=== PATIENT | male | born 1965 | race Caucasian/White ===

== ENCOUNTER 2024-01-30 15:38 | Outpatient (REF) | payer OTHER, SELFPAY ==
--- NOTE | ~2024-01-30 | XR_ITS ---
EXAMINATION: XR SOFT TISSUE NECK CLINICAL INDICATION: Right neck pain. COMPARISON: None available. TECHNIQUE: 2 views of the soft tissue neck were obtained. FINDINGS: The soft tissues of the larynx, pharynx and upper trachea appear unremarkable. No soft tissue swelling or opaque foreign body is demonstrated. Moderate disc degenerative change at C4-C6. Mild reversal of the normal cervical lordosis centered at C4-C5 XR/XR soft tissue neck IMPRESSION: Degenerative change. Electronically signed by: Bill Miller MD 02/01/2024 05:53 PM EDT
== END 2024-01-30 15:39 | disposition home or self-care (01) ==
LOC: HO.XRAY 15:38
PROVIDERS: PCP Internal Medicine Medical Oncology; Visit Provider Internal Medicine Medical Oncology
DX: M54.2 Cervicalgia (principal)
CPT/HCPCS: 70360

== ENCOUNTER 2024-02-13 15:44 | Outpatient (REF) | payer OTHER, SELFPAY ==
--- NOTE | ~2024-02-13 | US_ITS ---
EXAMINATION: US SOFT TISSUE HEAD/NECK CLINICAL INFORMATION: Palpable nodule right neck just below the ear. COMPARISON: X-ray soft tissue neck 01/30/2024. TECHNIQUE: Linear transducer grayscale and color Doppler examination of the right neck, inferior to ear. FINDINGS: Correlating with the palpable nodule, there is a benign, normal-appearing lymph node with normal cortex, normal fatty hilum, normal morphology measuring 0.5 x 0.3 x 0.3 cm. This is benign. There are no suspicious findings, abnormal fluid collections, abnormal lymph nodes, or masses. US/US soft tiss head and/or neck IMPRESSION: Palpable abnormality inferior to the right ear corresponds with a normal appearing right cervical lymph node. Electronically signed by: Steven Zheng MD 03/25/2024 04:09 PM [facility]
== END 2024-02-13 15:45 | disposition home or self-care (01) ==
LOC: HO.US 15:44
PROVIDERS: PCP Internal Medicine Medical Oncology; Visit Provider Internal Medicine Medical Oncology
DX: R22.1 Localized swelling, mass and lump, neck (principal)
CPT/HCPCS: 76536

== ENCOUNTER → 2024-02-13 15:48 | Outpatient (BNV) | payer OTHER, SELFPAY | PROVIDERS: PCP Internal Medicine Medical Oncology; Visit Provider Radiology Diagnostic Radiology | DX: R22.1 Localized swelling, mass and lump, neck (principal) | CPT/HCPCS: 76536 ==

== ENCOUNTER 2024-07-14 08:38 | Outpatient (REF) | payer OTHER, SELFPAY ==
--- NOTE | ~2024-07-14 | FL_ITS ---
EXAMINATION: XR FLUOROSCOPY UPPER GI WITH AIR CLINICAL INFORMATION: Dysphagia. COMPARISON: None TECHNIQUE: Fluoroscopic air contrast upper GI examination was performed utilizing standard techniques with thin and thick barium and effervescent granules. Numerous spot images were obtained. FINDINGS: Lateral cine images of the oropharynx and hypopharynx demonstrate normal swallow mechanism with normal epiglottic inversion and soft palate elevation. No tracheal penetration, glottic or subglottic aspiration identified. No nasopharyngeal reflux present. Hypopharyngeal structures appear normal without evidence of mass or diverticulum. There was no significant cricopharyngeal achalasia. Dual and single contrast images of the esophagus demonstrate normal caliber, contour, and mucosal pattern. No evidence of stricture, mass, or ulcerations identified. Esophageal peristalsis is mildly disorganized. No evidence of hiatus hernia identified. Significant gastroesophageal reflux is seen up to the thoracic inlet. Dual contrast and single contrast images of the stomach demonstrated a normal contour. The gastric rugal folds have a thickened appearance, suggestive of gastritis. No masses or ulcerations are seen. Contrast freely passed into the gastric antrum and duodenal bulb without delay. Single and air-contrast images of the duodenal bulb demonstrate no abnormality. The duodenal sweep has a normal appearance, course, and mucosal fold appearance. The imaged proximal jejunum has a normal fold pattern and caliber. FLUOROSCOPY TIME: 3 minutes 3 seconds Number of Spot Images: 8 Number of Cine: 13 DOSE AREA PRODUCT: 1859 uGy-m2 (microgray-meter squared) FL/FL barium swallow IMPRESSION: 1. Mild esophageal dysmotility. 2. Significant gastroesophageal reflux. 3. Thickened appearance of the gastric rugal folds, suggestive of gastritis. This procedure was performed by Emery Ernandez PA-C, and supervised by Dr. Zheng Electronically signed by: Steven Zheng MD 07/14/2024 04:16 PM [facility] [place]
--- OUTSIDE RECORDS SUMMARY | 2024-07-14 09:13 | XMS_ITS | Clinical Summary ---
Author Organization [facility] [address] [facility] [address] Address [address] [place] [address] Phone Care Team Providers Care Roulette Dealer Name Role Phone Davin Castellanos MD Primary Care Provider Allergies No known active allergies Encounters Date Type Department Care Team Description 05/03/2024 Telephone Gastroenterology - [address] [phone] Wellington Mg MD from Last 3 Months Social History Tobacco Use Types Packs/Day Years Used Date Smoking Tobacco: Never Assessed Sex and Gender Information Value Date Recorded Sex Assigned at Not on file Legal Sex Male 6:03 PM EST Gender Identity Not on file Sexual Orientation Not on file Plan of Treatment Upcoming Encounters Date Type Department Care Team (Late st Contact Info) Description 08/04/2024 8:40 AM EDT Office Visit Gastroenterology - [address] [phone] Wellington Mg MD [address] [id number] Health Maintenance Due Date Last Done Comments DTaP,Tdap,and Td Vaccines (1 - Tdap) 1982 Pneumococcal Vaccine: 50+ Ye ars (1 of 1 - PCV) 2013 Zoster Vaccines (1 of 2) 2013 COVID-19 Vaccine ( - 2023-2 5 season) 2024 Influenza Vaccine (#1) 2024 Cholesterol Screening (Lipid Panel) 04/01/2024 Colorectal Cancer Screening: Colonoscopy 04/01/2024 Depression Screening 04/01/2024 HIV Screening 04/01/2024 Hepatitis C Screening 04/01/2024 Medicare Annual Wellness Visit 04/01/2024 Social Influencers of Health Screening 04/01/2024 RSV Immunization Patients 60 + Years Old (1 - 1-dose 75+ series) 2038 HIB Vaccines Aged Out No longer eligi ble based on patient's age to complete this topic HPV Vaccines Aged Out No longer eligi ble based on patient's age to complete this topic Hepatitis A Vaccines Aged Out No long er eligible based on patient's age to complete this topic Hepatitis B Vaccines Aged Out No long er eligible based on patient's age to complete this topic IPV Vaccines Aged Out No longer eligi ble based on patient's age to complete this topic MMR Vaccines Aged Out No longer eligi ble based on patient's age to complete this topic Meningococcal ACWY Vaccine Aged Out N o longer eligible based on patient's age to complete this topic Meningococcal B Vacine Aged Out No lo nger eligible based on patient's age to complete this topic Pneumococcal Vaccine: Pediat rics (0 to 5 Years) and At-Risk Patients (6 to 64 Years) Aged Out No longer eligible b ased on patient's age to complete this topic RSV Immunization Patients Un darlin 20 months Aged Out No longer eligible b ased on patient's age to complete this topic Varicella Vaccines Aged Out No longer eligible based on patient's age to complete this topic Insurance [employer] [address] [place] [address] Care Teams Roulette Dealer Relationship Specialty [place] [address] [place] [address] [address] [place] [address] PCP - General Oncology 04/01/24
--- OUTSIDE RECORDS SUMMARY | 2024-07-14 09:13 | XMS_ITS ---
Author Organization Davin Castellanos III, MD Address [address] [place] [address] [place] [address] Care Team Providers Care Credit Professional Name Role Phone Davin Castellanos Primary Care Provider [phone] REASON FOR VISIT Rx Request Medications Medication SIG (Take, Route, Fr equency, Duration) Notes Start Date End Date Status Ondansetron HCl 4 MG 1 tablet Orally rodger ry 4 hours for nausea for 10 days Active Social History Sex Assigned At : Social History Observation Description Sex Assigned At Male Encounters Encounter Location Date Provider Diagnosis Daivn Castellanos III, MD [address] [place] [address] [place] [address] 04/26/2024 Davin Castellanos Neck pain on right side M54.2 Assessments Encounter Date Diagnosis (ICD Code) Assessment Notes Treatment Notes Treatment Clinical Notes 04/26/2024 Neck pain on right side (ICD-10 - M54.2) He is very concerned that he feels a mass in the right neck. An ultrasound has been ordered to further characterize the area.The ultrasound showed no significant abnormality. An MRI of the neck has been ordered. He has been referred to rehabilitation medicine for injections to relieve the pain. Plan Of Treatment Medication Medication Name Sig Start Date Stop Date Notes Ondansetron HCl 4 MG 1 tablet Orally rodger ry 4 hours for nausea for 10 days Next Appt Details Provider Name:Davin Castellanos, 07/15/2024 11:30:00 AM, [address] [place] [address] [address], [place], [phone], Provider Name:Davin Castellanos, 04/05/2025 04:00:00 PM, [address] [place] [address] [address], [place], [phone], Progress Notes * ADELSO FrdedyjoseDOB: [birth year] (58 yo M)Acc No.[id number]:04/26/2024 Patient:?Sekou DARDEN :1965???Age:58 Y???Sex:Male Address:[address] [place] [address], [phone] * Refills? Refill Ondansetron HCl Tablet, 4 MG, Orally, 60, 1 tablet, every 4 hours for nausea, 10 days, Refills=5 * true * Date:? Generated for Letty gaviria/Javon/eTransmitting on:?07/14/2024 09:12 AM EST
--- OUTSIDE RECORDS SUMMARY | 2024-07-14 09:13 | XMS_ITS ---
Author Organization Davin Castellanos III, MD Address [address] [place] [address] Care Team Providers Care Sales Executive Insurance Name Role Phone Davin Castellanos Primary Care Provider [phone] REASON FOR VISIT follow up Social History Sex Assigned At : Social History Observation Description Sex Assigned At Male Encounters Encounter Location Date Provider Diagnosis Davin Castellanos III, MD [address] [place] [address] [place] [address] 05/05/2024 Davin Castellanos Plan Of Treatment Next Appt Details Provider Name:Davin Castellanos, 07/15/2024 11:30:00 AM, [address] [place] [address] [place], [phone], Provider Name:Davin Castellanos, 04/05/2025 04:00:00 PM, [address] [place] [address] [place], [phone], Progress Notes * Sekou DARDENDOB: [birth year] (59 yo M)Acc No.[id number]:05/05/2024 Progress Notes Patient:?Sekou DARDEN Provider:?Davin Castellanos MD :1965???Age:58 Y???Sex:Male Rohan e:05/05/2024 Address:[facility] [id number] Subjective: * Chief Complaints: * ???1. Follow up. * Medical History:? Objective: * Vitals:? Assessment: Plan: * Treatment: * Images: * The named appointment provid er may or may not be the originator of this progress note, and it is not deemed complete until electronically signed by the appointment provider. Sign off status: Pending * Provider:?Davin Castellanos MD Date:?04/18 Generated for Letty gaviria/Javon/eTransmitting on:?07/14/2024 09:13 AM EST
--- OUTSIDE RECORDS SUMMARY | 2024-07-14 09:13 | XMS_ITS ---
Author Organization Davin Castellanos III, MD Address [address] [place] [address] Care Team Providers Care [employer] Software Development Engineer Name Role Phone Davin Castellanos Primary Care Provider [phone] Allergies Allergen (clinical drug ingredient) Drug/Non Drug Allergy documented on EMR Reaction Allergy Type Onset Date Status Sulfamethoxazole nausea Drug Allergy Active REASON FOR VISIT Chronic low back pain, Left cervical radiculopathy, Chronic abdominal discomfort, Benign prostatic hypertrophy, Weight loss, Lumps posterior right neck Medications Medication SIG (Take, Route, Fr equency, Duration) Notes Start Date End Date Status Ondansetron HCl 4 MG 1 tablet Orally rodger ry 4 hours for nausea Active Omeprazole 20 MG as directed Orally Once a day Active Ibuprofen 800 MG 1 tablet with food o r milk as needed Orally every 8 hrs Active Social History Tobacco Use: Social History Observation Description Date Details (start date - stop date) Former Smoker NA - NA Sex Assigned At : Social History Observation Description Sex Assigned At Male Tobacco Use/Smoking Question Answer Notes Patient is a former smoker How long has it been since you last smoked? > 10 years Additional Findings: Tobacco Non-User Ex-cigaret te smoker Problems Problem Type SNOMED Code ICD Code Onset Dates Problem Status W/U Status Risk Notes Problem Lump on neck (024889509) Lump in neck (R22.1) Active confirmed He is concerned about this lump in the upper right neck. On examination today as in the past. It appears to be vertebral process. No adenopathy or other masses noted. I have attempted to reassure him today. Problem 17219249 Abdominal discomfort (R10.9) Active confirmed His amylase is normal, but his lipase is slightly elevated. An ultrasound of his abdomen will be ordered to assess stability of retract and pancreas. He is able to consume food and fluids. He has had no nausea or vomiting. He seems medically stable. Problem 29703265 Cervical radiculopathy (M54.12) Active confirmed He has pain when he rotates his neck and he has failed to improve with physical therapy. Therefore an MRI will be ordered to look for a surgical solution. The pain is 7/10 and radiates into his shoulder and upper left arm Vital Signs Temperature 98.6 degrees Fahrenheit 07/08/19 25 Blood pressure systolic 131 mm Hg 07/08/19 25 Blood pressure diastolic 84 mm Hg 025 Heart Rate 69 /min 07/08/2024 Height 72 in 07/08/2024 Weight 188 lbs 07/08/2024 BMI 25.49 kg/m2 07/08/2024 Encounters Encounter Location Date Provider Diagnosis Davin Castellanos III, MD [address] [place] [address] [place] [address] 07/08/2024 Davin Castellanos Abdominal discomfort R10.9 ; Benign prostatic hyperplasia, unspecified whether lower urinary tract symptoms present N40.0 ; Lump in neck R22.1 ; Duodenitis K29.80 ; Lumbar spondylosis M47.816 ; Old tear of meniscus of right knee, unspecified meniscus, unspecified tear type M23.206 ; Former smoker Z87.891 ; Overweight E66.3 and Cervical radiculopathy M54.12 Assessments Encounter Date Diagnosis (ICD Code) Assessment Notes Treat ment Notes Treatment Clinical Notes 07/08/2024 Abdominal discomfort (ICD-10 - R10.9) His amylase is normal, but his lipase is slightly elevated. An ultrasound of his abdomen will be ordered to assess stability of retract and pancreas. He is able to consume food and fluids. He has had no nausea or vomiting. He seems medically stable. 07/08/2024 Benign prostatic hyperplasia, unspecified whether lower urinary tract symptoms present (ICD-10 - N40.0) He rises from sleep 2 or 3 times a night to urinate. He rises 3 times some nights. We discussed lifestyle modification is aware reducing nocturia. 07/08/2024 Lump in neck (ICD-10 - R22.1) He is concerned about this lump in the upper right neck. On examination today as in the past. It appears to be vertebral process. No adenopathy or other masses noted. I have attempted to reassure him today. 07/08/2024 Duodenitis (ICD-10 - K29.80) This was found in 2016 on upper endoscopy. He continues on acid suppression and uses ondansetron for nausea. He is under the care of a veneer marker. The abdominal discomfort and complaint has been evaluated thoroughly in the past and the only findings for inflammation of the duodenum. He will continue on current therapy and database will be reviewed. 07/08/2024 Lumbar spondylosis (ICD-10 - M47.816) He has occasional back pain which is well controlled with [id number] medication. He is avoiding heavy lifting and exertion. 07/08/2024 Old tear of meniscus of right knee, unspecified meniscus, unspecified tear type (ICD-10 - M23.206) This has been repaired in the right knee is no longer painful. 07/08/2024 Former smoker (ICD-10 - Z87.891) He is well motivated not to smoke. We formed a plan to prevent relapse and times of stress and illness. 07/08/2024 Overweight (ICD-10 - E66.3) He remains slightly overweight. We discussed several weight loss strategies today. 07/08/2024 Cervical radiculopathy (ICD-10 - M54.12) He has pain when he rotates his neck and he has failed to improve with physical therapy. Therefore an MRI will be ordered to look for a surgical solution. The pain is 7/10 and radiates into his shoulder and upper left arm Plan Of Treatment Medication Medication Name Sig Start Date Stop Date Notes Ondansetron HCl 4 MG 1 tablet Orally rodger ry 4 hours for nausea Omeprazole 20 MG as directed Orally Once a day Ibuprofen 800 MG 1 tablet with food o r milk as needed Orally every 8 hrs Pending Test Test Name Order Date PROFILE, FASTING (COMPREHENSIVE METABOLI C) 07/08/2024 PSA, TOTAL 07/08/2024 MRI CERVICAL SPINE NO CONTRAST 5 CBC WITH AUTO DIFF 07/08/2024 Lipid Panel 07/08/2024 Amylase 07/08/2024 Lipase 07/08/2024 Next Appt Details Follow Up: 3 Weeks, Reason: ov Provider Name:Davin Castellanos, 07/15/2024 11:30:00 AM, [address] [place] [address] [address], [place], [address], Provider Name:Davin Clevelandne, 04/05/2025 04:00:00 PM, [address] [place] [address] [address], [place], [address], Progress Notes * Sekou DARDENDOB: [birth year] (59 yo M)Acc No.[id number]:07/08/2024 Progress Notes Patient:?Sekou DARDEN Provider:?Davin Castellanos MD :1965???Age:59 Y???Sex:Male Rohan e:07/08/2024 Address:[address] [place], [place] [id number] Subjective: * Chief Complaints: * ???Chronic low back painLeft cervical radiculopathyChronic abdominal discomfortBenign prostatic hypertrophyWeight lossLumps posterior right neck * HPI: ???:? The patient, a 59-year-old male, presented with multiple complaints. He reported intermittent back pain and described a sensation of being kicked in the groin. He also reported bowel irregularities, with infrequent bowel movements that were incomplete. The patient also described a low urinary flow, which he felt was only relieved when he sat on the toilet and turned his body a certain way. He also reported pain in his pancreas. The patient mentioned having undergone multiple tests including MRIs, colonoscopies, and endoscopies. He also reported a lump in his neck and pain radiating to his shoulder. He also reported difficulty hearing due to what he believed was earwax buildup. * ROS:?General/Constitutional:?Admits?pain,?only normal aches and pains.?Chills?denies.?Fatigue?admits.?Fever?denies.?ENT:?Decreased hearing?denies.?Respiratory:?Cough?denies.?Cardiovascular:?Chest pain with exertion?denies.?Dyspnea on exertion?denies.?Shortness of breath?denies.?Gastrointestinal:?Constipation?occasional.?Decreased appetite?denies.?Diarrhea?denies.?Heartburn?occasional.?Nausea?intermittent.?Rec enriqueta bleeding?denies.?Vomiting?denies.?Hematology:?bruising?denies.?petechiae?denies.?Swollen glands?none have been noted.?Genitourinary:?Frequent urination?once a night.?Musculoskeletal:?Muscle aches?denies.?Painful joints?denies.?Sciatica?denies.?Weakness?denies.?Skin:?Itching?denies.?Rash?denies.?Skin lesion(s)?denies.?Neurologic:?Difficulty speaking?denies.?Dizziness?denies.?Headache?denies.?Low back pain?denies.?Psychiatric:?Depressed mood?which is mild.? * Medical History:? * Surgical History:?Colonoscop y Upper Gastointestinal endoscopy Right knee arthroscopic meniscectomy 2008bilateral cataract surgery right knee arthroscopic surgery 2009 * Hospitalization/Major Diagno stic Procedure:?Denies Past Hospitalization * Family History:?Father: bailee medeiros 74 yrs, Hepatitis C, alcoholism, diagnosed with HTN.?Mother: alive 74 yrs, Cardiac ablation procedure, hip repair.?1 brother(s) , 6 sister(s) - healthy. 2 son(s) - healthy. .? His father has a history of opiate addiction. His mother is alive and well with a history of ablation procedures in her heart. One brother of drug overdose. 6 sisters are alive and well. He has 1 grandchild. There is no family history of breast cancer colon cancer ovarian cancer prostate cancer or pancreatic cancer. * Social History:?Tobacco Use:?Tobacco Use/Smoking?Patient is a?former smoker ?How long has it been since you last smoked??> 10 years ?Additional Findings: Tobacco Non-User?Ex-cigarette smoker ???He no longer smokes tobacco. 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 He is from [place]. He has 2 sons in their 20s Mitchell and Tom. * Medications:?TakingOmeprazol e 20 MG Capsule Delayed Release as directed Orally Once a day Ibuprofen 800 MG Tablet 1 tablet with food or milk as needed Orally every 8 hrs Ondansetron HCl 4 MG Tablet 1 tablet Orally every 4 hours for nausea Taking Omeprazole 20 MG Capsule Delayed Release as directed Orally Once a day Taking Ibuprofen 800 MG Tablet 1 tablet with food or milk as needed Orally every 8 hrs Taking Ondansetron HCl 4 MG Tablet 1 tablet Orally every 4 hours for nausea DiscontinuedMetoclopramide HCl 10 MG Tablet 1 tablet before meals Orally four times a day predniSONE 20 MG Tablet 1 tablet Orally Once a day Mupirocin 2 % Ointment 1 application Externally Twice a day Medication List reviewed and reconciled with the patientDiscontinued Metoclopramide HCl 10 MG Tablet 1 tablet before meals Orally four times a day Discontinued predniSONE 20 MG Tablet 1 tablet Orally Once a day Discontinued Mupirocin 2 % Ointment 1 application Externally Twice a day Medication List reviewed and reconciled with the patient * Allergies:?Sulfamethoxazole: nausea - Side Effectsno[Allergies Verified] Objective: * Vitals:?Ht: 72 , Wt: 188, BM I:25.49, BP: 131/84, HR: 69, Temp: 98.6, Ht-cm: 182.88, Wt-k.28. * Examination: ???General Examination: ?GENERAL APPEARANCE:?pleasant, well nourished, well developed, in no acute distress, calm and relaxed, overweight, man.?HEAD:?atraumatic, normocephalic.?EYES:?eomi, perrla, anicteric, conjugate.?EARS:?normal.?NOSE:?septum intact.?ORAL CAVITY:?normal, unremarkable.?NECK/THYROID:?no jugular venous distention, no carotid bruit, thyroid normal.?LYMPH NODES:?no enlarged lymph nodes,spleen normal.?SKIN:?no suspicious lesions, anicteric.?HEART:?no clicks, gallops, murmurs, or rubs, regular rhythm, S1, S2 normal, no s3, or vascular bruits.?LUNGS:?clear to auscultation .?BREASTS:??no masses palpable bilaterally.?ABDOMEN:?bowel sounds normal, no ascites, no organomegaly, no mass, overweight, soft, nontender, nondistended.?RECTAL EXAM:?not examined.?MUSCULOSKELETAL:?extremities unremarkable, no clubbing, cyanosis or edema,? pain to left shoulder with range of motion of the neck.?PERIPHERAL PULSES:?normal.?NEUROLOGIC:?alert and oriented, cranial nerves 2-12 grossly intact, deep tendon reflexes 2+ symmetrical, motor strength normal upper and lower extremities, sensory exam intact.?PSYCH:?alert, oriented, speech clear, cooperative with exam, anxious appearing, affect restricted.? Assessment: * Assessment: 1.?Benign prostatic hyperpla antionette, unspecified whether lower urinary tract symptoms present - N40.0 (Primary)???Notes :He rises from sleep 2 or 3 times a night to urinate. He rises 3 times some nights. We discussed lifestyle modification is aware reducing nocturia.???2.?Abdominal discomfort - R10.9???Notes :His amylase is normal, but his lipase is slightly elevated. An ultrasound of his abdomen will be ordered to assess stability of retract and pancreas. He is able to consume food and fluids. He has had no nausea or vomiting. He seems medically stable.???3.?Lump in neck - R22.1???Notes :He is concerned about this lump in the upper right neck.? On examination today as in the past.? It appears to be vertebral process.? No adenopathy or other masses noted.? I have attempted to reassure him today.???4.?Duodenitis - K29.80???Notes :This was found in 2016 on upper endoscopy. He continues on acid suppression and uses ondansetron for nausea. He is under the care of a veneer marker. The abdominal discomfort and complaint has been evaluated thoroughly in the past and the only findings for inflammation of the duodenum. He will continue on current therapy and database will be reviewed.???5.?Lumbar spondylosis - M47.816???Notes :He has occasional back pain which is well controlled with [id number] medication. He is avoiding heavy lifting and exertion.???6.?Old tear of meniscus of right knee, unspecified meniscus, unspecified tear type - M23.206???Notes :This has been repaired in the right knee is no longer painful.???7.?Former smoker - Z87.891???Notes :He is well motivated not to smoke. We formed a plan to prevent relapse and times of stress and illness.???8.?Overweight - E66.3???Notes :He remains slightly overweight. We discussed several weight loss strategies today.???9.?Cervical radiculopathy - M54.12???Notes :He has pain when he rotates his neck and he has failed to improve with physical therapy.? Therefore an MRI will be ordered to look for a surgical solution.? The pain is 7/10 and radiates into his shoulder and upper left arm??? Plan: * Treatment: 2.?Abdominal discomfort? Continue Ibuprofen Tablet, 800 MG, 1 tablet with food or milk as needed, Orally, every 8 hrs.?LAB: PROFILE, FASTING (COMPREHENSIVE METABOLIC) ?LAB: PSA, TOTAL ?LAB: CBC WITH AUTO DIFF ?LAB: Lipid Panel ?LAB: Amylase ?LAB: Lipase 3.?Overweight?LAB: PROFILE, FASTING (COMPREHENSIVE METABOLIC) ?LAB: PSA, TOTAL ?LAB: CBC WITH AUTO DIFF ?LAB: Lipid Panel ?LAB: Amylase ?LAB: Lipase 4.?Others? Continue Omeprazole Capsule Delayed Release, 20 MG, as directed, Orally, Once a day;?Continue Ondansetron HCl Tablet, 4 MG, 1 tablet, Orally, every 4 hours for nausea.?? * Imaging:? * ?Imaging: MRI CERVICAL S PINE NO CONTRAST * Procedure Codes:? * Preventive Medicine:? ??Counseling:?Care goal follow-up plan:?Counseling for abnormal BMI given?Yes ?Above Normal BMI Follow-up?Dietary management education, guidance, and counseling, Dietary needs education * Follow Up:?3 Weeks (Reason: ov) * Images: * Sign off status: Completed true * Provider:?Davin Castellanos MD Date:?06/20 Generated for Letty gaviria/Javon/eTransmitting on:?07/14/2024 09:13 AM EST History and Physical Notes * Examination Category Sub-Category Detail Notes General Examination GENERAL APPEARANCE: pleasant , well nourished, well developed, in no acute distress, calm and relaxed, overweight, man HEAD: atraumatic, normocep halic EYES: eomi, perrla, anicte jak, conjugate EARS: normal NOSE: septum intact NECK/THYROID: no jugular venous di stention, no carotid bruit, thyroid normal HEART: no clicks, gallops, murmurs, or rubs, regular rhythm, S1, S2 normal, no s3, or vascular bruits LUNGS: clear to auscultatio n ABDOMEN: bowel sounds normal, no ascites, no organomegaly, no mass, overweight, soft, nontender, nondistended NEUROLOGIC: alert and oriented, cranial nerves 2-12 grossly intact, deep tendon reflexes 2+ symmetrical, motor strength normal upper and lower extremities, sensory exam intact SKIN: no suspicious lesion s, anicteric PERIPHERAL PULSES: normal BREASTS: no masses palpable b ilaterally MUSCULOSKELETAL: extremities unremark able, no clubbing, cyanosis or edema, pain to left shoulder with range of motion of the neck LYMPH NODES: no enlarged lymph no marissa,spleen normal RECTAL EXAM: not examined PSYCH: alert, oriented, spe ech clear, cooperative with exam, anxious appearing, affect restricted ORAL CAVITY: normal, unremarkable
--- OUTSIDE RECORDS SUMMARY | 2024-07-14 09:13 | XMS_ITS | Patient Health Record ---
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 Name Role Phone Davin Castellanos Primary Care Provider [phone] Allergies Allergen (clinical drug ingredient) Drug/Non Drug Allergy documented on EMR Reaction Allergy Type Onset Date Status Sulfamethoxazole nausea Drug Allergy Active Results Component Value Reference Range Notes US soft tiss head and/or nec k Reviewed date:05/12/2024 08:44:51 AM Interpretation: Performing Lab: Notes/Report: [address] [address] Ultrasound Report Signed Patient: Sekou Short MR#: [id number] : 1965 Acct:[id number] Age/Sex: 58 / M ADM Date: 02/13/24 Loc: HO.US Attending Dr: Davin Castellanos MD Ordering Physician: Davin Castellanos MD Date of Service: 02/13/24 Procedure(s): US soft tiss head and/or neck Accession Number(s): [id number] cc: Davin Castellanos MD EXAMINATION: US SOFT TISSUE HEAD/NECK CLINICAL INFORMATION: Palpable nodule right neck just below the ear. COMPARISON: X-ray soft tissue neck 01/30/2024. TECHNIQUE: Linear transducer grayscale and color Doppler examination of the right neck, inferior to ear. FINDINGS: Correlating with the palpable nodule, there is a benign, normal-appearing lymph node with normal cortex, normal fatty hilum, normal morphology measuring 0.5 x 0.3 x 0.3 cm. This is benign. There are no suspicious findings, abnormal fluid collections, abnormal lymph nodes, or masses. US/US soft tiss head and/or neck IMPRESSION: Palpable abnormality inferior to the right ear corresponds with a normal appearing right cervical lymph node. Electronically signed by: Steven Zheng MD 03/25/2024 04:09 PM [facility] Dictated By: Steven Zheng MD Signed By: <Electronically signed by Steven Zheng MD in OV> 03/25/24 1609 DD/ 1553 TD/TT: 02/13/24 1554 Public Health Veterinarian: [place] [address] Ultrasound Report Signed Patient: Lacho Short MR#: [id number] : 1965 Acct:[id number] Age/Sex: 58 / M ADM Date: 02/13/24 Loc: HO.US Attending Dr: Davin Castellanos MD Ordering Physician: Davin Castellanos MD Date of Service: 02/13/24 Procedure(s): US sof t tiss head and/or neck Accession Number(s): [id number] cc: Davin Castellanos MD EXAMINATION: US SOFT TISSUE HEAD/NECK CLINICAL INFORMATION: Palpable nodule righ t neck just below the ear. COMPARISON: X-ray soft tissue ne ck 01/30/2024. TECHNIQUE: Linear transducer gr ayscale and color Doppler examination of the right neck, inferior to ear. FINDINGS: Correlating with the palpable nodule, there is a benign, normal-appearing lym ph node with normal cortex, normal fatty hilum, normal morphology me asuring 0.5 x 0.3 x 0.3 cm. This is benign. There are no suspici ous findings, abnormal fluid collections, abnormal lymph nodes, or masses. U S/US soft tiss head and/or neck IMPRESSION: Palpable abnormality inferior to the right ear corresponds with a normal appearing rig ht cervical lymph node. Electronically zohra d by: Steven Zheng MD 03/25/2024 04:09 PM EST RP Dictated By: Steven Zheng MD Signed By: <Gabe benitez signed by Steven Zheng MD in OV> 03/25/24 1609 DD/ 1553 TD/TT: 02/13/24 1554 Public Health Veterinarian: XR soft tissue neck Reviewed date:02/16/2024 08:16:05 AM Interpretation: Performing Lab: Notes/Report: [address] [address] XRay Report Signed Patient: Sekou Short MR#: [id number] : 1965 Acct:[id number] Age/Sex: 58 / M ADM Date: 01/30/24 Loc: NIC Attending Dr: Davin Castellanos MD Ordering Physician: Davin Castellanos MD Date of Service: 01/30/24 Procedure(s): XR soft tissue neck Accession Number(s): [id number] cc: Davin Castellanos MD EXAMINATION: XR SOFT TISSUE NECK CLINICAL INDICATION: Right neck pain. COMPARISON: None available. TECHNIQUE: 2 views of the soft tissue neck were obtained. FINDINGS: The soft tissues of the larynx, pharynx and upper trachea appear unremarkable. No soft tissue swelling or opaque foreign body is demonstrated. Moderate disc degenerative change at C4-C6. Mild reversal of the normal cervical lordosis centered at C4-C5 XR/XR soft tissue neck IMPRESSION: Degenerative change. Electronically signed by: Bill Miller MD 02/01/2024 05:53 PM EDT RP Dictated By: Bill Miller Signed By: <Electronically signed by Bill Miller in OV> 02/01/24 1753 DD/ 1604 TD/TT: 01/30/24 1604 Public Health Veterinarian: [address] [address] XRay Report Signed Patient: Lacho Short MR#: [id number] : 1965 Acct:[id number] Age/Sex: 58 / M ADM Date: 01/30/24 Loc: NIC Attending Dr: Davin Castellanos MD Ordering Physician: Davin Castellanos MD Date of Service: 01/30/24 Procedure(s): XR sof t tissue neck Accession Number(s): [id number] cc: Davin Castellanos MD EXAMINATION: XR SOFT TISSUE NECK CLINICAL INDICATION: Right neck pain. COMPARISON: None available. TECHNIQUE: 2 views of the soft tissue neck were obtained. FINDINGS: The soft tissues of the larynx, pharynx and upper trachea appear unremarkable. No sof t tissue swelling or opaque foreign body is demonstrated. Modera te disc degenerative change at C4-C6. Mild reversal of the normal cervic al lordosis centered at C4-C5 X R/XR soft tissue neck IMPRESSION: Degenerative change. Electronically zohra d by: Bill Miller MD 02/01/2024 05:53 PM EDT Dictated By: Bill Miller Signed By: <Gabe [email or web address] signed by Bill Miller in OV> 02/01/24 1753 DD/ 1604 TD/TT: 01/30/24 1604 Public Health Veterinarian: Reason For Referral Reason chronic cervical nec k pain with ROM evaluate and treat Diagnosis 1 Cervical pain (neck) (M54.2) Referral Organization Davin Castellanos III, MD Referring Provider First Name Davin Referring Provider Last Name Castellanos Referring Provider Speciality Internal edicine Referred Provider Spine and Sp [facility] Referred Provider Specialty Physical Med icicaden General Notes Moriah Lan CMA 04/06 02:47:17 PM >ref/demo/progress note faxed to [facility] the MRI request was denied by Edyta Tejada Suzanne [facility] 04/29/2024 03:46:09 PM >I called was seen on 04/20/2024 currently having PT Referral Priority Routine Referral Appointment Date 04/20/2024 Reason chronic nausea with weight loss Diagnosis 1 Chronic nausea (R11. 0) Diagnosis 2 Weight loss (R63.4) Referral Organization Davin Castellanos III, MD Referring Provider First Name Davin Referring Provider Last Name Jasmin Referring Provider Speciality Internal edicine Referred Provider TYLER MG Referred Provider Specialty Gastroentero logy General Notes Moriah Lan CMA 04/01 02:26:23 PM > I called Dr Mg office made pt appt for 05/02/2024 at 2:45pm arrival with 3pm appt pt called and mailed this information and ref/progress note faxed to Dr Mg at [phone] Referral Priority Routine Referral Appointment Date 05/05/2024 Medications Medication SIG (Take, Route, Fr equency, [...] Additional Findings: Tobacco Non-User Ex-cigaret te smoker Alcohol Screen Question Answer Notes Did you have a drink containing alcohol in the p ast year? No Points 0 Interpretation Negative Problems Problem Type SNOMED Code ICD Code Onset Dates Problem Status W/U Status Risk Notes Problem 6385454 Former smoker (Z87.891) Active confirmed He is well motivated not to smoke. We formed a plan to prevent relapse and times of stress and illness. Problem 185494438 Overweight (E66.3) Active confirmed He remains slightly overweight. We discussed several weight loss strategies today. Problem 27435753 Cervical radiculopathy (M54.12) Active confirmed He has pain when he rotates his neck and he has failed to improve with physical therapy. Therefore an MRI will be ordered to look for a surgical solution. The pain is 7/10 and radiates into his shoulder and upper left arm Problem 12627175 Abdominal discomfort (R10.9) Active confirmed His amylase is normal, but his lipase is slightly elevated. An ultrasound of his abdomen will be ordered to assess stability of retract and pancreas. He is able to consume food and fluids. He has had no nausea or vomiting. He seems medically stable. Problem Duodenitis (45920318) Duodenitis (K29.80) Active confirmed This was found in 2015 on upper endoscopy. He continues on acid suppression and uses ondansetron for nausea. He is under the care of a gastroenterol ogist. The abdominal discomfort and complaint has been evaluated thoroughly in the past and the only findings for inflammation of the duodenum. He will continue on current therapy and database will be reviewed. Problem Lump on neck (694944969) Lump in neck (R22.1) Active confirmed He is concerned about this lump in the upper right neck. On examination today as in the past. It appears to be vertebral process. No adenopathy or other masses noted. I have attempted to reassure him today. Problem 418815328 Benign prostatic hyperplasia, unspecified whether lower urinary tract symptoms present (N40.0) Active confirmed He rises fro m sleep 2 or 3 times a night to urinate. He rises 3 times some nights. We discussed lifestyle modification is aware reducing nocturia. Problem 195345719 Lumbar spondylosis (M47.816) Active confirmed He has occasional back pain which is well controlled with szbm-zld-ojmd ter medication. He is avoiding heavy lifting and exertion. Problem 84377745373968 History of pancreatitis (Z87.19) Active confirmed He has consumed a healthy, normal diet and has had no further episodes of abdominal pain. He has gained several pounds and his nutrition seems adequate. Problem 660600276220813 Lateral epicondylitis of right elbow (M77.11) Active confirmed The pain in the elbow has resolved. Problem 388332529 Old tear of meniscus of right knee, unspecified meniscus, unspecified tear type (M23.206) Active confirmed This has been repaired in the right knee is no longer painful. Vital Signs Heart Rate 69 /min 07/08/2024 Temperature 98.6 degrees Fahrenheit 07/08/2024 Blood pressure diastolic 84 mm Hg 07/08/2024 Height 72 in 07/08/2024 Blood pressure systolic 131 mm Hg 07/08/2024 Weight 188 lbs 07/08/2024 BMI 25.49 kg/m2 07/08/2024 Encounters Encounter Location Date Provider Diagnosis Davin Castellanos III, MD [address] [place] [address] [place] [address] 08/22/2023 Davin Castellanos Elevated lipase R74. 8 ; Overweight E66.3 ; Former smoker Z87.891 ; Benign prostatic hyperplasia, unspecified whether lower urinary tract symptoms present N40.0 and History of pancreatitis Z87.19 Davin Castellanos III, MD [address] [place] [address] [place] [address] 01/30/2024 Davin Castellanos Neck pain on right s alfredo M54.2 ; Duodenitis K29.80 ; Lumbar spondylosis M47.816 ; Left upper quadrant pain R10.12 ; Old tear of meniscus of right knee, unspecified meniscus, unspecified tear type M23.206 ; Benign prostatic hyperplasia, unspecified whether lower urinary tract symptoms present N40.0 ; Overweight E66.3 ; Former smoker Z87.891 and Other dysphagia R13.19 Davin Castellanos III, MD [address] [place] [address] [place] [address] 02/06/2024 Davin Castellanos Neck pain on right s alfredo M54.2 ; Mass in neck R22.1 ; Dysphagia R13.10 ; Overweight E66.3 and Former smoker Z87.891 Davin Castellanos III, MD [address] [place] [address] [place] [address] 03/31/2024 Davin Castellanos Neck pain on right s alfredo M54.2 ; Abdominal discomfort R10.9 ; Former smoker Z87.891 ; Benign prostatic hyperplasia, unspecified whether lower urinary tract symptoms present N40.0 ; History of pancreatitis Z87.19 and Mass in neck R22.1 Davin Castellanos III, MD [address] [place] [address] [place] [address] 07/08/2024 Davin Castellanos Abdominal discomfort R10.9 ; Benign prostatic hyperplasia, unspecified whether lower urinary tract symptoms present N40.0 ; Lump in neck R22.1 ; Duodenitis K29.80 ; Lumbar spondylosis M47.816 ; Old tear of meniscus of right knee, unspecified meniscus, unspecified tear type M23.206 ; Former smoker Z87.891 ; Overweight E66.3 and Cervical radiculopathy M54.12 Davin Castellanos III, MD [address] [place] [address] [place] [address] 12/02/2023 Davin Castellanos Elevated lipase R74. 8 Davin Castellanos III, MD [address] [place] [address] [place] [address] 01/29/2024 Davin Castellanos III, MD [address] [place] [address] [place] [address] 02/06/2024 Davin Castellanos Mass in neck R22.1 Davin Castellanos III, MD [address] [place] [address] [place] [address] 04/01/2024 Davin Castellanos Cervical pain (neck) M54.2 Davin Castellanos III, MD [address] [place] [address] [place] [address] 04/01/2024 Davin Castellanos III, MD [address] [place] [address] [place] [address] 04/07/2024 Davin Castellanos III, MD [address] [place] [address] [place] [address] 04/26/2024 Davin Castellanos Neck pain on right s alfredo M54.2 Assessments Encounter Date Diagnosis (ICD Code) Assessment Notes Treatment Notes Treatment Clinical Notes 08/22/2023 Overweight (ICD-10 - E66.3) He remains slightly overweight. We discussed several weight loss strategies today. 08/22/2023 Elevated lipase (ICD-10 - R74.8) His symptoms are unchanged. The lipase will be repeated. 01/30/2024 Duodenitis (ICD-10 - K29.80) This was found in 2016 on upper endoscopy. He continues on acid suppression and uses ondansetron for nausea. 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 The abdominal discomfort and complaint has been evaluated thoroughly in the past and the only findings for inflammation of the duodenum. He will continue on current therapy and database will be reviewed. 01/30/2024 Neck pain on right side (ICD-10 - M54.2) This appears to be a nerve impingement. He declined the use of a muscle relaxant. He will use a conservative regimen of he rest and ibuprofen. 02/06/2024 Neck pain on right side (ICD-10 - M54.2) He is very concerned that he feels a mass in the right neck. An ultrasound has been ordered to further characterize the area. 02/06/2024 Mass in neck (ICD-10 - R22.1) Ultrasound has been ordered to further characterize the area. 03/31/2024 Abdominal discomfort (ICD-10 - R10.9) His amylase is normal, but his lipase is slightly elevated. An ultrasound of his abdomen will be ordered to assess stability of retract and pancreas. He is able to consume food and fluids. He has had no nausea or vomiting. He seems medically stable. 03/31/2024 Neck pain on right side (ICD-10 - M54.2) He is very concerned that he feels a mass in the right neck. An ultrasound has been ordered to further characterize the area.The ultrasound showed no significant abnormality. An MRI of the neck has been ordered. He has been referred to rehabilitation medicine for injections to relieve the pain. 07/08/2024 Abdominal discomfort (ICD-10 - R10.9) His [...] discussed lifestyle modification is aware reducing nocturia. 12/02/2023 Elevated lipase (ICD-10 - R74.8) His symptoms are unchanged. The lipase will be repeated. 04/01/2024 Cervical pain (neck) (ICD-10 - M54.2) 04/26/2024 Neck pain on right side (ICD-10 - M54.2) He is very concerned that he feels a mass in the right neck. An ultrasound has been ordered to further characterize the area.The ultrasound showed no significant abnormality. An MRI of the neck has been ordered. He has been referred to rehabilitation medicine for injections to relieve the pain. 08/22/2023 Former smoker (ICD-10 - Z87.891) He is well motivated not to smoke. We formed a plan to prevent relapse and times of stress and illness. 01/30/2024 Lumbar spondylosis (ICD-10 - M47.816) He has occasional back pain which is well controlled with satm-jrm-untonwa medication. He is avoiding heavy lifting and exertion. 02/06/2024 Dysphagia (ICD-10 - R13.10) If this persists she is going to have an upper GI or barium swallow to study the esophagus. 03/31/2024 Former smoker (ICD-10 - Z87.891) He is well motivated not to smoke. We formed a plan to prevent relapse and times of stress and illness. 07/08/2024 Lump in neck (ICD-10 - R22.1) He is concerned about this lump in the upper right neck. On examination today as in the past. It appears to be vertebral process. No adenopathy or other masses noted. I have attempted to reassure him today. 02/06/2024 Mass in neck (ICD-10 - R22.1) 08/22/2023 Benign prostatic hyperplasia, unspecified whether lower urinary tract symptoms present (ICD-10 - N40.0) He rises from sleep 2 or 3 times a night to urinate. He rises 3 times some nights. We discussed lifestyle modification is aware reducing nocturia. 01/30/2024 Left upper quadrant pain (ICD-10 - R10.12) No significant abnormality was found on examination. 02/06/2024 Overweight (ICD-10 - E66.3) He remains slightly overweight. We discussed several weight loss strategies today. 03/31/2024 Benign prostatic hyperplasia, unspecified whether lower urinary tract symptoms present (ICD-10 - N40.0) He rises from sleep 2 or 3 times a night to urinate. He rises 3 times some nights. We discussed lifestyle modification is aware reducing nocturia. 07/08/2024 Duodenitis (ICD-10 - K29.80) This was found in 2015 on upper endoscopy. He continues on acid suppression and uses ondansetron for nausea. 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 The abdominal discomfort and complaint has been evaluated thoroughly in the past and the only findings for inflammation of the duodenum. He will continue on current therapy and database will be reviewed. 08/22/2023 History of pancreatitis (ICD-10 - Z87.19) He has consumed a healthy, normal diet and has had no further episodes of abdominal pain. He has gained several pounds and his nutrition seems adequate. 01/30/2024 Old tear of meniscus of right knee, unspecified meniscus, unspecified tear type (ICD-10 - M23.206) This has been repaired in the right knee is no longer painful. 02/06/2024 Former smoker (ICD-10 - Z87.891) He is well motivated not to smoke. We formed a plan to prevent relapse and times of stress and illness. 03/31/2024 History of pancreatitis (ICD-10 - Z87.19) He has consumed a healthy, normal diet and has had no further episodes of abdominal pain. He has gained several pounds and his nutrition seems adequate. 07/08/2024 Lumbar spondylosis (ICD-10 - M47.816) He has occasional back pain which is well controlled with ssqe-hus-lgzdvnh medication. He is avoiding heavy lifting and exertion. 01/30/2024 Benign prostatic hyperplasia, unspecified whether lower urinary tract symptoms present (ICD-10 - N40.0) He rises from sleep 2 or 3 times a night to urinate. He rises 3 times some nights. We discussed lifestyle modification is aware reducing nocturia. 03/31/2024 Mass in neck (ICD-10 - R22.1) He continues to complain of a mass in the upper right neck. It seems that would he is feeling his bone where the sternocleidomastoid muscle attaches. The ultrasound of the neck showed no adenopathy or tumor. An MRI of the area has been ordered. 07/08/2024 Old tear of meniscus of right knee, unspecified meniscus, unspecified tear type (ICD-10 - M23.206) This has been repaired in the right knee is no longer painful. 01/30/2024 Overweight (ICD-10 - E66.3) He remains slightly overweight. We discussed several weight loss strategies today. 07/08/2024 Former smoker (ICD-10 - Z87.891) He is well motivated not to smoke. We formed a plan to prevent relapse and times of stress and illness. 01/30/2024 Former smoker (ICD-10 - Z87.891) He is well motivated not to smoke. We formed a plan to prevent relapse and times of stress and illness. 07/08/2024 Overweight (ICD-10 - E66.3) He remains slightly overweight. We discussed several weight loss strategies today. 01/30/2024 Other dysphagia (ICD-10 - R13.19) This will be investigated with barium studies if it does not resolve with conservative treatment of the neck discomfort 07/08/2024 Cervical radiculopathy (ICD-10 - M54.12) He has pain when he rotates his neck and he has failed to improve with physical therapy. Therefore an MRI will be ordered to look for a surgical solution. The pain is 7/10 and radiates into his shoulder and upper left arm Plan Of Treatment Pending Test Test Name Order Date PROFILE, FASTING (COMPREHENSIVE METABOLI C) 08/22/2023 PROFILE, FASTING (COMPREHENSIVE METABOLI C) 08/03/2021 PROFILE, FASTING (COMPREHENSIVE METABOLI C) 08/13/2022 PROFILE, FASTING (COMPREHENSIVE METABOLI C) 11/12/2021 PROFILE, FASTING (COMPREHENSIVE METABOLI C) 07/08/2024 PROFILE, RANDOM (COMPREHENSIVE METABOLIC ) 06/04/2023 PROFILE, RANDOM (COMPREHENSIVE METABOLIC ) 06/21/2019 AMYLASE 08/03/2021 LIPASE 08/03/2021 LIPID PANEL 06/21/2019 LIPID PANEL 08/13/2022 LIPID PANEL 08/03/2021 LDH 06/04/2023 PSA, TOTAL 08/03/2021 PSA, TOTAL 06/04/2023 PSA, TOTAL 06/21/2019 PSA, TOTAL 11/12/2021 PSA, TOTAL 08/13/2022 PSA, TOTAL 07/08/2024 CBC w DIFF 11/12/2021 CBC w DIFF 08/13/2022 CBC w DIFF 08/03/2021 CBC w DIFF 06/21/2019 SED RATE (ESR) 06/21/2019 SED RATE (ESR) 08/03/2021 SED RATE (ESR) 06/04/2023 URINALYSIS (UA) 06/04/2023 MRI CERVICAL SPINE NO CONTRAST MRI CERVICAL SPINE NO CONTRAST CBC WITH AUTO DIFF 07/08/2024 CBC WITH AUTO DIFF 08/22/2023 CBC WITH AUTO DIFF 06/04/2023 Lipid Panel 11/12/2021 Lipid Panel 07/08/2024 Lipid Panel 08/22/2023 Amylase 06/04/2023 Amylase 07/08/2024 Lipase 11/12/2021 Lipase 06/04/2023 Lipase 07/08/2024 Urine Culture 06/04/2023 FL barium swallow 02/06/2024 Next Appt Details Provider Name:Davin Tomasrne, 07/15/2024 11:30:00 AM, [address] [place] [address] [address] [place], [place], [address], Provider Name:Davin Castellanos, 04/05/2025 04:00:00 PM, [address], [address], [place], [address], Insurance Providers Payer Name Payer Address Payer Phone Subscriber Number Group Number Insured Name Patient Relationship to Insured Coverage Start Date Coverage End Date [facility] [address] [facility] [address] [facility] [place] [id number] O Sekou Sohrt Self - patient is the insured Medical (General) History Medical History History ICD Code Medial epicondylitis, right elbow M77.01 Lumbar spondylosis M47.816 Epigastric abdominal pain R10.13 overweight former smoker torn meniscus right knee hemorrhoids duodenitis pancreatitis 2011 Surgical History Surgery Date(Month/Year) right knee arthroscopic surgery 2009 bilateral cataract surgery Right knee arthroscopic meniscectomy 200 8 Upper Gastointestinal endoscopy Colonoscopy
== END 2024-07-14 08:39 | disposition home or self-care (01) ==
LOC: HO.XRAY 08:38
PROVIDERS: PCP Internal Medicine Medical Oncology; Visit Provider Internal Medicine Medical Oncology
DX: R13.10 Dysphagia, unspecified (principal)
CPT/HCPCS: 74220

== ENCOUNTER → 2024-07-14 08:40 | Outpatient (BNV) | payer OTHER, SELFPAY | PROVIDERS: PCP Internal Medicine Medical Oncology; Visit Provider Physician Assistant Surgical | DX: R13.10 Dysphagia, unspecified (principal) | CPT/HCPCS: 74246; 74248 ==

== ENCOUNTER 2024-07-16 19:03 | Outpatient (REF) | payer OTHER, SELFPAY ==
--- NOTE | ~2024-07-16 | MR_ITS ---
CLINICAL HISTORY: Severe right side neck pain. MR cervical spine without gadolinium Comparison: None Findings: Straightening of the cervical spine is likely positional. No acute fractures or pathologic bone lesions. C4-C5: Disc bulge and uncovertebral arthropathy causes mild bilateral neural foraminal stenosis. C5-C6: Uncovertebral and facet arthropathy causes moderate bilateral neural foraminal stenosis. Visualized intracranial contents are unremarkable. No cervical fluid collections or masses. Cervical cord normal size and signal. IMPRESSION: No acute findings. 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 This document has been electronically signed by: Komal Ang MD on 07/16/2024 20:35:22
--- OUTSIDE RECORDS SUMMARY | 2024-07-16 19:05 | XMS_ITS ---
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 On examination today as in the past. It appears to be vertebral process. No adenopathy or other masses noted. I have attempted to reassure him today. Problem 70234447 Abdominal discomfort (R10.9) Active confirmed His amylase is normal, but his lipase is slightly elevated. An ultrasound of his abdomen will be ordered to assess stability of retract and pancreas. He is able to consume food and fluids. He has had no nausea or vomiting. He seems medically stable. Problem 19325688 Cervical radiculopathy (M54.12) Active confirmed He has [...] Date Provider Diagnosis Davin Castellanos III, MD [address] [place] [address] [place] [address] 07/08/2024 Davin Castellanos Abdominal discomfort R10.9 ; [...] He is under the care of a software development leader. The abdominal discomfort and complaint has been evaluated thoroughly in the past and the only findings for inflammation of the duodenum. He will continue on current therapy and database will be reviewed. 07/08/2024 Lumbar spondylosis (ICD-10 - M47.816) He has occasional back pain which is well controlled with zitz-sur-vgwukch medication. He is avoiding heavy lifting and [...] Up: 3 Weeks, Reason: ov Provider Name:Davin Clevelandne, 04/05/2025 04:00:00 PM, [address] [place] [address] [address] [place] [address], [address], Progress Notes * Sekou DARDENDOB: [birth year] (59 yo M)Acc No.[id number]:07/08/2024 Progress Notes Patient:?Sekou DARDEN Provider:?Davin Castellanos MD :1965???Age:59 Y???Sex:Male Rohan e:07/08/2024 Address:[address] [place], [place] [address] Subjective: * Chief Complaints: * ???Chronic low [...] He is under the care of a software development leader. The abdominal discomfort and complaint has been evaluated thoroughly in the past and the only findings for inflammation of the duodenum. He will continue on current therapy and database will be reviewed.???5.?Lumbar spondylosis - M47.816???Notes :He has occasional back pain which is well controlled with efqc-nyv-wgnweyd medication. He is avoiding heavy lifting and [...] Castellanos MD Date:?06/20 Generated for Letty gaviria/Javon/eTransmitting on:?07/16/2024 07:05 PM EST History and Physical Notes * Examination [...]
--- OUTSIDE RECORDS SUMMARY | 2024-07-16 19:05 | XMS_ITS ---
Author Organization Davin Castellanos III, MD Address [address] [place] [address] Care Team Providers Care Stove Polisher Name Role Phone Davin Castellanos Primary Care Provider REASON FOR VISIT follow up Social History Sex Assigned At : Social History Observation Description Sex Assigned At Male Encounters Encounter Location Date Provider Diagnosis Davin Castellanos III, MD [address] [place] [address] [place] [address] 05/05/2024 Davin Castellanos Plan Of Treatment Next Appt Details Provider Name:Davin Castellanos, 04/05/2025 04:00:00 PM, [address] [place] [address] [place], [address], Progress Notes * Sekou DARDENDOB: [birth year] (59 yo M)Acc No.[id number]:05/05/2024 Progress Notes Patient:?Sekou DARDEN Provider:?Davin Castellanos MD :1965???Age:58 Y???Sex:Male Rohan e:05/05/2024 Address:[facility] [place], [place] Subjective: * Chief Complaints: * ???1. Follow up. * Medical History:? Objective: * Vitals:? Assessment: Plan: * Treatment: * Images: * The named appointment provid er may or may not be the originator of this progress note, and it is not deemed complete until electronically signed by the appointment provider. Sign off status: Pending * Provider:?Davin Castellanos MD Date:?04/18 Generated for Letty gaviria/Javon/Anastacio on:?07/16/2024 07:05 PM EST
--- OUTSIDE RECORDS SUMMARY | 2024-07-16 19:05 | XMS_ITS | Patient Health Record ---
Author Organization Davin Castellanos III, MD Address [address] [place] [address] Care Team Providers Care Scientific Publications Editor Name Role Phone Davin Castellanos Primary Care Provider [phone] Allergies Allergen (clinical drug ingredient) Drug/Non Drug Allergy documented on EMR Reaction Allergy Type Onset Date Status Sulfamethoxazole nausea Drug Allergy Active Results Component Value Reference Range Notes US soft tiss head and/or nec k Reviewed date:05/12/2024 08:44:51 AM Interpretation: Performing Lab: Notes/Report: [address] [address] Ultrasound Report Signed Patient: Sekou Short MR#: [id number] : 1965 Acct:[id number] Age/Sex: 58 / M ADM Date: 02/13/24 Loc: HO.US Attending Dr: Davin Castellanos MD Ordering Physician: Davin Castellanos MD Date of Service: 02/13/24 Procedure(s): US soft tiss head and/or neck Accession Number(s): [id number] cc: Davin Castellanos MD EXAMINATION: US SOFT [...] by: Steven Zheng MD 03/25/2024 04:09 PM [facility] [place] Dictated By: Steven Zheng MD Signed By: <Electronically signed by Steven Zheng MD in OV> 03/25/24 1609 DD/ 1553 TD/TT: 02/13/24 1554 Building Trades Teacher: [place] [address] Ultrasound Report Signed Patient: Lacho Short MR#: [id number] 0164 : 1965 Acct:[id number] Age/Sex: 58 / M ADM Date: 02/13/24 Loc: HO.US Attending Dr: Davin Castellanos MD Ordering Physician: Davin Castellanos MD Date of Service: 02/13/24 Procedure(s): US sof t tiss head and/or neck Accession Number(s): [id number] cc: Davin Castellanos MD EXAMINATION: US SOFT [...] 03/25/24 1609 DD/ 1553 TD/TT: 02/13/24 1554 Building Trades Teacher: XR soft tissue neck Reviewed date:02/16/2024 08:16:05 AM Interpretation: Performing Lab: Notes/Report: [address] [address] XRay Report Signed Patient: Sekou Short MR#: [id number] : 1965 Acct:[id number] Age/Sex: 58 / M ADM Date: 01/30/24 Loc: NIC Attending Dr: Davin Castellanos MD Ordering Physician: Davin Castellanos MD Date of Service: 01/30/24 Procedure(s): XR soft tissue neck Accession Number(s): [id number] cc: Davin Castellanos MD EXAMINATION: XR SOFT [...] 02/01/24 1753 DD/ 1604 TD/TT: 01/30/24 1604 Building Trades Teacher: [address] [address] XRay Report Signed Patient: Lacho Short MR#: [id number] : 1965 Acct:[id number] Age/Sex: 58 / M ADM Date: 01/30/24 Loc: NIC Attending Dr: Davin Castellanos MD Ordering Physician: Davin Castellanos MD Date of Service: 01/30/24 Procedure(s): XR sof t tissue neck Accession Number(s): [id number] cc: Davin Castellanos MD EXAMINATION: XR SOFT [...] RP Dictated By: Bill Miller Signed By: <Electron ically signed by Bill Miller in OV> 02/01/24 1753 DD/ 1604 TD/TT: 01/30/24 1604 Building Trades Teacher: FL barium swallow (Not yet r eviewed by provider) Interpretation: Performing Lab: Notes/Report: [address] [address] Fluoroscopy Report Signed Patient: Sekou Short MR#: [id number] : 1965 Acct:[id number] Age/Sex: 59 / M ADM Date: 07/14/24 Loc: NIC Attending Dr: Davin Castellanos MD Ordering Physician: Davin Castellanos MD Date of Service: 07/14/24 Procedure(s): FL barium swallow Accession Number(s): [id number] cc: Davin Castellanos MD EXAMINATION: XR FLUOROSCOPY UPPER GI WITH AIR CLINICAL INFORMATION: Dysphagia. COMPARISON: None TECHNIQUE: Fluoroscopic air contrast upper GI examination was performed utilizing standard techniques with thin and thick barium and effervescent granules. Numerous spot images were obtained. FINDINGS: Lateral cine images of the oropharynx and hypopharynx demonstrate normal swallow mechanism with normal epiglottic inversion and soft palate elevation. No tracheal penetration, glottic or subglottic aspiration identified. No nasopharyngeal reflux present. Hypopharyngeal structures appear normal without evidence of mass or diverticulum. There was no significant cricopharyngeal achalasia. Dual and single contrast images of the esophagus demonstrate normal caliber, contour, and mucosal pattern. No evidence of stricture, mass, or ulcerations identified. Esophageal peristalsis is mildly disorganized. No evidence of hiatus hernia identified. Significant gastroesophageal reflux is seen up to the thoracic inlet. Dual contrast and single contrast images of the stomach demonstrated a normal contour. The gastric rugal folds have a thickened appearance, suggestive of gastritis. No masses or ulcerations are seen. Contrast freely passed into the gastric antrum and duodenal bulb without delay. Single and air-contrast images of the duodenal bulb demonstrate no abnormality. The duodenal sweep has a normal appearance, course, and mucosal fold appearance. The imaged proximal jejunum has a normal fold pattern and caliber. FLUOROSCOPY TIME: 3 minutes 3 seconds Number of Spot Images: 8 Number of Cine: 13 DOSE AREA PRODUCT: 1859 uGy-m2 (microgray-meter squared) FL/FL barium swallow IMPRESSION: 1. Mild esophageal dysmotility. 2. Significant gastroesophageal reflux. 3. Thickened appearance of the gastric rugal folds, suggestive of gastritis. This procedure was performed by Emery Ernandez PA-C, and supervised by Dr. Zheng Electronically signed by: Steven Zheng MD 07/14/2024 04:16 PM [facility] [place] Dictated By: Emery Ernandez Signed By: <Electronically signed by Emery Ernandez in OV> 07/14/24 1616 <Electronically signed by Steven Zheng MD in OV> 07/14/24 1618 DD/ 0840 TD/TT: 07/14/24 0912 Building Trades Teacher: [address] [address] Fluoroscopy Report Signed Patient: Lacho Short MR#: [id number] : 1965 Acct:[id number] Age/Sex: 59 / M ADM Date: 07/14/24 Loc: HO.XRAY Attending Dr: Davin Castellanos MD Ordering Physician: Davin Castellanos MD Date of Service: 07/14/24 Procedure(s): FL barium swallow Accession Number(s): [id number] cc: Davin Castellanos MD EXAMINATION: XR FLUOROSCOPY UPPER GI WITH AIR CLINICAL INFORMATION: Dysphagia. COMPARISON: None TECHNIQUE: Fluoroscopic air con trast upper GI examination was performed utilizing standard techniques with thin and thick barium and effervescent granules. Numerous s pot images were obtained. FINDINGS: Lateral cine images of the oropharynx and hypopharynx demonstrate normal swallow mecha nism with normal epiglottic inversion and soft palate elevation. No tracheal penetration, glottic or subglottic aspiration identifie d. No nasopharyngeal reflux present. Hypopharyngeal structures appear no rmal without evidence of mass or diverticulum. There was no signifi cant cricopharyngeal achalasia. Dual and single cont rast images of the esophagus demonstrate normal caliber, contour, an d mucosal pattern. No evidence of stricture, mass, or ulcerations ident ified. Esophageal peristalsis is mildly disorganized. No evidence of hiatu s hernia identified. Significant gastroesophageal reflux is seen up to the thoracic inlet. Dual contrast and si ngle contrast images of the stomach demonstrated a normal contour. The gastric rugal folds have a thickened appearance, suggestive of gastri tis. No masses or ulcerations are seen. Contrast freely passed into t he gastric antrum and duodenal bulb without delay. Single and air-contr ast images of the duodenal bulb demonstrate no abnormality. The duo denal sweep has a normal appearance, course, and mucosal fold appeara nce. The imaged proximal jejunum has a normal fold pattern and caliber. FLUOROSCOPY TIME: 3 minutes 3 seconds Number of Spot Images: 8 Number of Cine: 13 DOSE AREA PRODUCT: 1859 uGy-m2 (microgr ay-meter squared) F L/FL barium swallow IMPRESSION: 1. Mild esophageal dysmotility. 2. Significant gastr oesophageal reflux. 3. Thickened appeara nce of the gastric rugal folds, suggestive of gastritis. This procedure was p erformed by Emery Ernandez PA-C, and supervised by Dr. Zheng Electronically zohra d by: Steven Zheng MD 07/14/2024 04:16 PM [facility] [place] Dictated By: Emery Ernandez Signed By: <Electron ically signed by Emery Ernandez in OV> 07/14/24 1616 <Electronically sign ed by Steven Zheng MD in OV> 07/14/24 1618 DD/ 0840 TD/TT: 07/14/24 0912 Building Trades Teacher: Reason For Referral Reason chronic cervical nec k pain with ROM evaluate and treat Diagnosis 1 Cervical pain (neck) (M54.2) Referral Organization Davin Castellanos III, MD Referring Provider First Name Davin Referring Provider Last Name Jasmin Referring Provider Speciality Internal edicine [facility]erred Provider Specialty Physical Med icine General Notes Moriah Lan CMA 04/06 02:47:17 PM >ref/demo/progress note faxed to [facility] the MRI request was denied by Edyta Tejada Suzanne CMA 04/29/2024 03:46:09 PM >I called was seen [...] Provider TYLER MG Referred Provider Specialty Gastroentero benja General Notes Moriah Lan CMA 04/01 02:26:23 PM > I called Dr Mg office made pt appt for 05/02/2024 at 2:45pm arrival with 3pm appt pt called and mailed this information and ref/progress note faxed to Dr Mg at [phone] Referral Priority Routine Referral Appointment Date 05/05/2024 Reason Consult and Treat Diagnosis 1 Unspecified hearing loss (H91.90) Referral Organization Davin Castellanos III, MD Referring Provider First Name Davin Referring Provider Last Name Castellanos Referring Provider Speciality Internal edicine Referred Provider [facility], Audiology Referred Provider Specialty Otolaryngolo gy General Notes Jacinto Lomax 01:36:02 PM >Referral faxed to [facility] Speech and Hearing Referral Priority Routine Medications Medication SIG (Take, Route, Fr equency, Duration) Notes Start Date End Date Status Omeprazole 20 MG as directed Orally Once a day Active Ibuprofen 800 MG 1 tablet with food o r milk as needed Orally every 8 hrs Active Ondansetron HCl 4 MG 1 tablet Orally rodger ry 4 hours for nausea Active Social History Tobacco Use: Social History [...] Problem Status W/U Status Risk Notes Problem 4209863 Former smoker (Z87.891) Active confirmed He is well motivated not to smoke. We formed a plan to prevent relapse and times of stress and illness. Problem 425028549 Overweight (E66.3) Active confirmed He remains slightly overweight. We discussed several weight loss strategies today. Problem 29935091 Cervical radiculopathy (M54.12) Active confirmed He has pain when he rotates his neck and he has failed to improve with physical therapy. Therefore an MRI will be ordered to look for a surgical solution. The pain is 7/10 and radiates into his shoulder and upper left arm Problem 12760001 Abdominal discomfort (R10.9) Active confirmed His amylase is normal, but his lipase is slightly elevated. An ultrasound of his abdomen will be ordered to assess stability of retract and pancreas. He is able to consume food and fluids. He has had no nausea or vomiting. He seems medically stable. Problem Duodenitis (65748404) Duodenitis (K29.80) Active confirmed This was found in 2016 on upper endoscopy. He continues on acid suppression and uses ondansetron for nausea. He is under the care of a gastroenterol ogist. The abdominal discomfort and complaint has been evaluated thoroughly in the past and the only findings for inflammation of the duodenum. He will continue on current therapy and database will be reviewed. Problem Lump on neck (371190891) Lump in neck (R22.1) Active confirmed He is concerned about this lump in the upper right neck. On examination today as in the past. It appears to be vertebral process. No adenopathy or other masses noted. I have attempted to reassure him today. 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 He rises 3 times some nights. We discussed lifestyle modification is aware reducing nocturia. Problem 294746550 Lumbar spondylosis (M47.816) Active confirmed He has occasional back pain which is well controlled with ecxb-slb-rrix ter medication. He is avoiding heavy lifting and exertion. Problem 82929704860891 History of pancreatitis (Z87.19) Active confirmed He has consumed a healthy, normal diet and has had no further episodes of abdominal pain. He has gained several pounds and his nutrition seems adequate. Problem 665611909633602 Lateral epicondylitis of right elbow (M77.11) Active confirmed The pain in the elbow has resolved. Problem 232554897 Old tear of meniscus of right knee, unspecified meniscus, unspecified tear type (M23.206) Active confirmed This has been repaired in the right knee is no longer painful. Problem 76731275 Unspecified hearing loss (H91.90) Active confirmed Vital Signs Heart Rate 65 /min 07/15/2024 Temperature 98.6 degrees Fahrenheit 07/08/2024 Blood pressure diastolic 85 mm Hg 07/15/2024 Height 72 in 07/15/2024 Blood pressure systolic 150 mm Hg 07/15/2024 Weight 188 lbs 07/15/2024 BMI 25.49 kg/m2 07/15/2024 Encounters Encounter Location Date Provider Diagnosis Davin Castellanos III, MD [address] [place] [address] [place] [address] 08/22/2023 Davin Castellanos Elevated lipase R74. 8 ; Overweight E66.3 ; Former smoker Z87.891 ; Benign prostatic hyperplasia, unspecified whether lower urinary tract symptoms present N40.0 and History of pancreatitis Z87.19 Davin Castellanos III, MD [address] [place] [address] [place] [address] 01/30/2024 Davin Castellanos Neck pain on right [...] Other dysphagia R13.19 Davin Castellanos III, MD [address] [place] [address] [place] [address] 02/06/2024 Davin Castellanos Neck pain on right s alfredo M54.2 ; Mass in neck R22.1 ; Dysphagia R13.10 ; Overweight E66.3 and Former smoker Z87.891 Davin Castellanos III, MD [address] [place] [address] [place] [address] 03/31/2024 Davin Castellanos Neck pain on right s alfredo M54.2 ; Abdominal discomfort R10.9 ; Former smoker Z87.891 ; Benign prostatic hyperplasia, unspecified whether lower urinary tract symptoms present N40.0 ; History of pancreatitis Z87.19 and Mass in neck R22.1 Davin Castellanos III, MD [address] [place] [address] [place] [address] 07/08/2024 Davin Castellanos Abdominal discomfort R10.9 ; Benign prostatic hyperplasia, unspecified whether lower urinary tract symptoms present N40.0 ; Lump in neck R22.1 ; Duodenitis K29.80 ; Lumbar spondylosis M47.816 ; Old tear of meniscus of right knee, unspecified meniscus, unspecified tear type M23.206 ; Former smoker Z87.891 ; Overweight E66.3 and Cervical radiculopathy M54.12 Davin Castellanos III, MD [address] [place] [address] [place] [address] 07/15/2024 Davin Castellanos Impacted cerumen, unspecified ear H61.20 and Other specified hearing loss of both ears H91.8X3 Davin Castellanos III, MD [address] [place] [address] [place] [address] 12/02/2023 Davin Castellanos Elevated lipase R74. 8 Davin Castellanos III, MD [address] [place] [address] [place] [address] 01/29/2024 Davin Castellanos III, MD [address] [place] [address] [place] [address] 02/06/2024 Davin Castellanos Mass in neck R22.1 Davin Castellanos III, MD [address] [place] [address] [address] [place] [address] 04/01/2024 Davin Castellanos Cervical pain (neck) M54.2 Davin Castellanos III, MD [address] [place] [address] [place] [address] 04/01/2024 Davin Castellanos III, MD [address] [place] [address] [place] [address] 04/07/2024 Davin Castellanos III, MD [address] [place] [address] [place] [address] 04/26/2024 Davin Jasmin Neck pain on right s alfredo M54.2 [...] He is under the care of a biology research assistant. The abdominal discomfort and complaint has been [...] discussed lifestyle modification is aware reducing nocturia. 07/15/2024 Impacted cerumen, unspecified ear (ICD-10 - H61.20) 07/15/2024 Other specified hearing loss of both ears (ICD-10 - H91.8X3) 12/02/2023 Elevated lipase (ICD-10 - R74.8) His [...] back pain which is well controlled with zfgh-yxu-rgliegz medication. He is avoiding heavy lifting and [...] He is under the care of a biology research assistant. The abdominal discomfort and complaint has been [...] back pain which is well controlled with smac-jaf-xlpvylg medication. He is avoiding heavy lifting and [...] 07/08/2024 Urine Culture 06/04/2023 FL barium swallow 07/14/2024 FL barium swallow 02/06/2024 Next Appt Details Provider Name:Davin Castellanos, 04/05/2025 04:00:00 PM, [address], [place], [address], Insurance Providers Payer Name Payer Address Payer Phone Subscriber Number Group Number Insured Name Patient Relationship to Insured Coverage Start Date Coverage End Date [facility] [address] [facility] [address] [facility] [phone] [id number] O Sekou Short Self - patient is the insured Medical [...]
--- OUTSIDE RECORDS SUMMARY | 2024-07-16 19:05 | XMS_ITS ---
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 Name Role Phone Davin Castellanos Primary Care Provider Allergies Allergen (clinical drug ingredient) Drug/Non Drug Allergy documented on EMR Reaction Allergy Type Onset Date Status Sulfamethoxazole nausea Drug Allergy Active Reason For Referral Reason Consult and Treat Diagnosis 1 Unspecified hearing loss (H91.90) Referral Organization Davin Castellanos III, MD Referring Provider First Name Davin Referring Provider Last Name Jasmin Referring Provider Speciality Internal M edicine Referred Provider [facility] er, Audiology Referred Provider Specialty Otolaryngolo gy General Notes Jacinto Lomax ASMA 01:36:02 PM >[place] [facility] [place] Ref[place] Priority Routine REASON FOR VISIT Ear Lavage Medications Medication SIG (Take, Route, Fr equency, [...] Problem Status W/U Status Risk Notes Problem [id number] 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) Active confirmed Vital Signs Blood pressure systolic 150 mm Hg 07/15/19 25 Blood pressure diastolic 85 mm Hg 025 Heart Rate 65 /min 07/15/2024 Height 72 in 07/15/2024 Weight 188 lbs 07/15/2024 BMI 25.49 kg/m2 07/15/2024 Encounters Encounter Location Date Provider Diagnosis Davin Castellanos III, MD [address] [place] [address] [address] [place] [id number] 07/15/2024 Davin Castellanos Impacted cerumen, unspecified ear H61.20 and Other specified hearing loss of both ears H91.8X3 Assessments Encounter Date Diagnosis (ICD Code) Assessment Notes Treat ment Notes Treatment Clinical Notes 07/15/2024 Impacted cerumen, unspecified ear (ICD-10 - H61.20) 07/15/2024 Other specified hearing loss of both ears (ICD-10 - H91.8X3) Plan Of Treatment Medication Medication Name Sig Start Date Stop Date Notes Omeprazole 20 MG as directed Orally Once a day Ibuprofen 800 MG 1 tablet with food o r milk as needed Orally every 8 hrs Ondansetron HCl 4 MG 1 tablet Orally rodger ry 4 hours for nausea Referrals Referral Date Details 07/15/2024 07/15/2024, Consult and Treat, Audiology [facility] Next Appt Details Provider Name:Davin Castellanos, 04/05/2025 04:00:00 PM, [address] [place] [address] [address], [place], [id number], Procedure Notes * Category Sub-Category Detail Notes Ear lavage Procedure Under direct vis ualization, both ears, irrigated with water/H2O2 Post-procedure Successful Progress Notes * Sekou DARDENDOB: [birth year] (59 yo M)Acc No.[id number]:07/15/2024 Patient:?Sekou DARDEN Provider:?Davin Castellanos MD :1965???Age:59 Y???Sex:Male Rohan e:07/15/2024 Address:[id number] Subjective: * Chief Complaints: * ???Ear Lavage * HPI: ???COVID-19 Screening:?Questions?Have you had any new onset fever, chills, cough, congestion, sore throat, shortness of breath, muscle aches??No * Medical History:? * Surgical History:?Colonoscop y [...] tablet Orally every 4 hours for nausea * Allergies:?Sulfamethoxazole: nausea - Side Effectsno[Allergies Verified] Objective: * Vitals:?Ht: 72 , Wt: 188, BM I:25.49, BP: 150/85, HR: 65, Ht-cm: 182.88, Wt-k.28. Assessment: * Assessment: 1.?Impacted cerumen, unspeci fied ear - H61.20 (Primary)???2.?Other specified hearing loss of both ears - H91.8X3??? Plan: * Treatment: 2.?Others? Referral To:Audiology [facility]??Otolaryngology ?Reason:Consult and Treat * Procedures:?Ear lavage:?Procedure?Under direct visualization, both ears, irrigated with water/H2O2.?Post-procedure?Successful.? * Procedure Codes:?90515 EAR I RRIGATION * Preventive Medicine:? ??Counseling:?Care goal follow-up plan:?Counseling for abnormal BMI given?Yes ?Above Normal BMI Follow-up?Dietary management education, guidance, and counseling, Dietary needs education, Exercise promotion: strength training, Exercise promotion: stretching, Feeding regime, Giving encouragement to exercise, Lifestyle education regarding diet, Nutrition / feeding management, Nutrition therapy, Prescribed activity/exercise education, Prescribed diet education, Prescribed dietary intake, Special diet education, Weight monitoring , Intervention, Order not done: Medical or Other reason not done * Images: * Sign off status: Completed true * Provider:?Davin Castellanos MD Date:?06/20 Generated for Perezi everette/Javon/Anastacio on:?07/16/2024 07:05 PM EST History and Physical Notes * HPI (History of Present Illness) Category Sub-Category Detail Notes COVID-19 Screening Questions Have you had any new onset fever, chills, cough, congestion, sore throat, shortness of breath, muscle aches?: No Consultation Request Notes Referral Date Referring Provider Referred Provider Not es 07/15/2024 Jasmin [facility], [place] iology Consult and Treat
== END 2024-07-16 19:04 | disposition home or self-care (01) ==
LOC: HO.MRI 19:03
PROVIDERS: PCP Internal Medicine Medical Oncology; Visit Provider Internal Medicine Medical Oncology
DX: M54.2 Cervicalgia (principal)
CPT/HCPCS: 72141

== ENCOUNTER → 2024-07-16 19:26 | Outpatient (BNV) | payer OTHER, SELFPAY | PROVIDERS: PCP Internal Medicine Medical Oncology; Visit Provider Radiology Diagnostic Radiology | DX: M54.2 Cervicalgia (principal) | CPT/HCPCS: 72141 ==

== ENCOUNTER 2024-08-21 09:03 | Outpatient (REF) | payer OTHER, SELFPAY ==
--- NOTE | ~2024-08-21 | XR_ITS ---
EXAMINATION: XR CHEST 2 VIEWS HISTORY: [employer] COMPARISON: There are no prior studies for comparison. FINDINGS: PA and lateral views of the chest are submitted. There is minimal linear subsegmental atelectasis versus scarring in the lingula. The lungs are otherwise clear. There is no pleural effusion, pneumothorax, or pulmonary vascular congestion. The heart is normal in size. There is mild degenerative disc disease of the spine. XR/XR chest 2V IMPRESSION: Minimal subsegmental atelectasis versus scarring in the lingula. Electronically signed by: Davin Del Rio MD 08/23/2024 10:48 AM EDT
--- OUTSIDE RECORDS SUMMARY | 2024-08-21 09:06 | XMS_ITS | Patient Health Record ---
Author Organization Davin Castellanos III, MD Address [address] [address] Care Team Providers Care Forms Builder Name Role Phone Davin Castellanos Primary Care Provider Allergies Allergen (clinical drug ingredient) Drug/Non Drug Allergy documented on EMR Reaction Allergy Type Onset Date Status Sulfamethoxazole nausea Drug Allergy Active Results Component Value Reference Range Notes US soft tiss head and/or nec k Reviewed date:05/12/2024 08:44:51 AM Interpretation: Performing Lab: Notes/Report: [address] [address] Ultrasound Report Signed Patient: Sekou Short MR#: [id number] 0164 : 1965 Acct:[id number] Age/Sex: 58 / M ADM Date: 02/13/24 Loc: HO.US Attending Dr: Davin Castellanos MD Ordering Physician: Davin Castellanos MD Date of Service: 02/13/24 Procedure(s): US soft tiss head and/or neck Accession Number(s): [id number] cc: Davin Castellanos MD EXAMINATION: US SOFT [...] by: Steven Zheng MD 03/25/2024 04:09 PM [facility] Dictated By: Steven Zheng MD Signed By: <Electronically signed by Steven Zheng MD in OV> 03/25/24 1609 DD/ 1553 TD/TT: 02/13/24 1554 Foreign Languages Professor: [place] [address] Ultrasound Report Signed Patient: Lacho Short MR#: [id number] 0164 : 1965 Acct:[id number] Age/Sex: 58 / M ADM Date: 02/13/24 Loc: HO.US Attending Dr: Davin Castellanos MD Ordering Physician: Davin Castellanos MD Date of Service: 02/13/24 Procedure(s): US sof t tiss head and/or neck Accession Number(s): [id number] cc: Davin Castellanos MD EXAMINATION: US SOFT [...] 03/25/24 1609 DD/ 1553 TD/TT: 02/13/24 1554 Foreign Languages Professor: XR soft tissue neck Reviewed date:02/16/2024 08:16:05 AM Interpretation: Performing Lab: Notes/Report: [address] [address] XRay Report Signed Patient: Sekou Short MR#: [id number] 0164 : 1965 Acct:[id number] Age/Sex: 58 / M ADM Date: 01/30/24 Loc: NIC Attending Dr: Davin Castellanos MD Ordering Physician: Davin Castellanos MD Date of Service: 01/30/24 Procedure(s): XR soft tissue neck Accession Number(s): [id number] cc: Davin Castellanos MD EXAMINATION: XR SOFT [...] 02/01/24 1753 DD/ 1604 TD/TT: 01/30/24 1604 Foreign Languages Professor: [address] [address] XRay Report Signed Patient: Lacho Short MR#: [id number] 0164 : 1965 Acct:[id number] Age/Sex: 58 / M ADM Date: 01/30/24 Loc: NIC Attending Dr: Davin Castellanos MD Ordering Physician: Davin Castellanos MD Date of Service: 01/30/24 Procedure(s): XR sof t tissue neck Accession Number(s): [id number] cc: Davin Castellanos MD EXAMINATION: XR SOFT [...] Miller Signed By: <Electron ically signed by Blil Miller in OV> 02/01/24 1753 DD/ 1604 TD/TT: 01/30/24 1604 Foreign Languages Professor: FL barium swallow (Not yet r eviewed by provider) Interpretation: Performing Lab: Notes/Report: [address] [address] Fluoroscopy Report Signed Patient: Sekou Short MR#: [id number] 0164 : 1965 Acct:[id number] Age/Sex: 59 / M ADM Date: 07/14/24 Loc: NIC Attending Dr: Davin Castellanos MD Ordering Physician: Davin Castellanos MD Date of Service: 07/14/24 Procedure(s): FL barium swallow Accession Number(s): [id number] cc: Davin Castellanos MD EXAMINATION: XR FLUOROSCOPY [...] by: Steven Zheng MD 07/14/2024 04:16 PM [facility] Dictated By: Emery Ernandez Signed By: <Electronically signed by Emery Ernandez in OV> 07/14/24 1616 <Electronically signed by Steven Zheng MD in OV> 07/14/24 1618 DD/ 0840 TD/TT: 07/14/24 0912 Foreign Languages Professor: [address] [address] Fluoroscopy Report Signed Patient: Lacho Short MR#: [id number] 0164 : 1965 Acct:[id number] Age/Sex: 59 / M ADM Date: 07/14/24 Loc: HO.XRAY Attending Dr: Davin Castellanos MD Ordering Physician: Davin Castellanos MD Date of Service: 07/14/24 Procedure(s): FL barium swallow Accession Number(s): [id number] cc: Daivn Castellanos MD EXAMINATION: XR FLUOROSCOPY UPPER GI [...] by: Steven Zheng MD 07/14/2024 04:16 PM [facility] Dictated By: Emery Ernandez Signed By: <Electron ically signed by Emery Ernandez in OV> 07/14/24 1616 <Electronically sign ed by Steven Zheng MD in OV> 07/14/24 1618 DD/ 0840 TD/TT: 07/14/24 0912 Foreign Languages Professor: MR cervical spine wo con (No t yet reviewed by provider) Interpretation: Performing Lab: Notes/Report: [address] [address] Magnetic Resonance Report Signed Patient: Sekou Short MR#: [id number] 0164 : 1965 Acct:[id number] Age/Sex: 59 / M ADM Date: 07/16/24 Loc: HO.MRI Attending Dr: Davin Castellanos MD Ordering Physician: Davin Castellanos MD Date of Service: 07/16/24 Procedure(s): MR cervical spine wo con Accession Number(s): [id number] cc: Davin Castellanos MD CLINICAL HISTORY: Severe right side neck pain. MR cervical spine without gadolinium Comparison: None Findings: Straightening of the cervical spine is likely positional. No acute fractures or pathologic bone lesions. C4-C5: Disc bulge and uncovertebral arthropathy causes mild bilateral neural foraminal stenosis. C5-C6: Uncovertebral and facet arthropathy causes moderate bilateral neural foraminal stenosis. Visualized intracranial contents are unremarkable. No cervical fluid collections or masses. Cervical cord normal size and signal. IMPRESSION: No acute findings. Degenerative changes at C4-C5 and C5-C6 causing jszx-rf-esifqyow bilateral neural foraminal stenosis. This document has been electronically signed by: Komal Ang MD on 07/16/2024 20:35:22 Dictated By: Komal Ang MD Signed By: <Electronically signed by Komal Ang MD in OV> 07/16/242035 DD/ 34 TD/TT: 07/16/242034 Foreign Languages Professor: [address] [address] Magnetic Resonance Report Signed Patient: Lacho Short MR#: [id number] 0164 : 1965 Acct:[id number] Age/Sex: 59 / M ADM Date: 07/16/24 Loc: HO.MRI Attending Dr: Davin Castellanos MD Ordering Physician: Davin Castellanos MD Date of Service: 07/16/24 Procedure(s): MR paulo ramires spine wo con Accession Number(s): [id number] cc: Davin Castellanos MD CLINICAL HISTORY: Se oswaldo right side neck pain. MR cervical spine wi thout gadolinium Comparison: None Findings: Straightening of the cervical spine is likely positional. No acute fractures o r pathologic bone lesions. C4-C5: Disc bulge an d uncovertebral arthropathy causes mild bilateral neural foraminal stenosis. C5-C6: Uncovertebral and facet arthropathy causes moderate bilateral neural foraminal stenosis. Visualized intracran ial contents are unremarkable. No cervical fluid co llections or masses. Cervical cord normal size and signal. IMPRESSION: No acute findings. Degenerative changes at C4-C5 and C5-C6 causing onhr-ai-qpbnzaqd bilateral neural foraminal stenosis. This document has be en electronically signed by: Komal Ang MD on 07/16/2024 20:35:22 Dictated By: Komal Ang MD Signed By: <Electron ically signed by Komal Ang MD in OV> 07/16/242035 DD/ 34 TD/TT: 07/16/242034 Foreign Languages Professor: Reason For Referral Reason chronic cervical nec k pain with ROM evaluate and treat Diagnosis 1 Cervical pain (neck) (M54.2) Referral Organization Davin Castellanos III, MD Referring Provider First Name Davin Referring Provider Last Name Castellanos Referring Provider Speciality Internal edicine Referred Provider [facility] Referred Provider Specialty Physical Med icine General Notes Moriah Lan CMA 04/06 02:47:17 PM >ref/demo/progress note faxed to [facility] the MRI request was denied by Edyta [...] Last Name Castellanos Referring Provider Speciality Internal M edicine Referred Provider TYLER MG Referred Provider Specialty Gastroentero logy General Notes Moriah Lan [employer] 04/01 02:26:23 PM > I called Dr Mg office made pt appt for 05/02/2024 at 2:45pm arrival with 3pm appt pt called and mailed this information and ref/progress note faxed to Dr Mg at [phone] Referral Priority Routine Referral Appointment Date 05/05/2024 Reason Consult and Treat Diagnosis 1 Unspecified hearing loss (H91.90) Referral Organization Davin Castellanos III, MD Referring Provider First Name Davin Referring Provider Last Name Jasmin Referring Provider Speciality Internal M edicine Referred Provider [facility] er, Audiology Referred Provider Specialty Otolaryngolo gy General Notes PJacinto ASMA 01:36:02 PM >Referral faxed to [facility] Speech and Hearing Referral Priority Routine Medications Medication SIG (Take, Route, Fr equency, Duration) Notes Start Date End Date Status Ibuprofen 800 MG 1 tablet with food o r milk as needed Orally every 8 hrs Active Ondansetron HCl 4 MG 1 tablet Orally rodger ry 4 hours for nausea Active Omeprazole 20 MG 1 capsule Orally Onc e a day for 90 days Active Social History Tobacco Use: Social History [...] Problem Status W/U Status Risk Notes Problem 2392015 Former smoker (Z87.891) Active confirmed He is well motivated not to smoke. We formed a plan to prevent relapse and times of stress and illness. Problem 643946970 Overweight (E66.3) Active confirmed He has gained 10 pounds now wearing 198. His body mass index is 26. We discussed diet and nutrition and made a plan to stabilize his weight gain. Problem Impacted cerumen (87374123) Impacted cerumen, unspecified ear (H61.20) Active confirmed The cerumen was easily removed.His hearing did not improve. Therefore, he was referred to audiology for testing. Problem 76109490 Cervical radiculopathy (M54.12) Active confirmed He has pain when he rotates his neck and he has failed to improve with physical therapy. Therefore an MRI will be ordered to look for a surgical solution. The pain is 7/10 and radiates into his shoulder and upper left arm. Diagnosis and therapeutics are in effect. Problem 75357389 Abdominal discomfort (R10.9) Active confirmed His amylase is normal, but his lipase is slightly elevated. An ultrasound of his abdomen will be ordered to assess stability of retract and pancreas. He is able to consume food and fluids. He has had no nausea or vomiting. He seems medically stable. Problem Duodenitis (94965908) Duodenitis (K29.80) Active confirmed This was found [...] will be reviewed. Problem Lump on neck (745589807) Lump in neck (R22.1) Active confirmed He says he can still feel the lump in his right neck which is concern to him. He was given an appointment to return to the office for further evaluation. Problem 302974726 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) Active confirmed Problem 705130324 Benign prostatic hyperplasia, unspecified whether lower urinary tract symptoms present (N40.0) Active confirmed He rises fro m sleep 2 or 3 times a night to urinate. He rises 3 times some nights. We discussed lifestyle modification is aware reducing nocturia. Problem 089361901 Lumbar spondylosis (M47.816) Active confirmed His low back pain which has been well-controll ed has worsened. However, his neck is the main problem and he wants this addressed first. Diagnostic and therapeutic efforts will be directed toward the cervical spondylosis. Problem 67061340469570 History of pancreatitis (Z87.19) Active confirmed He has consumed a healthy, normal diet and has had no further episodes of abdominal pain. He has gained several pounds and his nutrition seems adequate. Problem 904744032804631 Lateral epicondylitis of right elbow (M77.11) Active confirmed The pain in the elbow has resolved. Problem Old tear of meniscus of right knee, unspecified meniscus, unspecified tear type (M23.206) Active confirmed This has been repaired in the right knee is no longer painful. Problem 98349550 Unspecified hearing loss (H91.90) Active confirmed He complains of bilateral hearing loss of long-standing . He does not wish to have a further evaluation today. Vital Signs Heart Rate 80 /min 08/17/2024 Temperature 97.0 degrees Fahrenheit 08/17/2024 Blood pressure diastolic 81 mm Hg 08/17/2024 Height 72 in 08/17/2024 Blood pressure systolic 137 mm Hg 08/17/2024 Weight 198 lbs 08/17/2024 BMI 26.85 kg/m2 08/17/2024 Encounters Encounter Location Date Provider Diagnosis Davin Castellanos III, MD [address] [place] [address] [place] [address] 08/22/2023 Davin Castellanos Elevated lipase R74. 8 ; Overweight E66.3 ; Former smoker Z87.891 ; Benign prostatic hyperplasia, unspecified whether lower urinary tract symptoms present N40.0 and History of pancreatitis Z87.19 Davin Castellanos III, MD [address] [place] [address] [place] [address] 01/30/2024 Davin Castellanos Neck pain on right [...] Other dysphagia R13.19 Davin Castellanos III, MD [address] [place] [address] [place] [address] 02/06/2024 Davin Castellanos Neck pain on right s alfredo M54.2 ; Mass in neck R22.1 ; Dysphagia R13.10 ; Overweight E66.3 and Former smoker Z87.891 Davin Castellanos III, MD [address] [place] [address] [place] [address] 03/31/2024 Davin Castellanos Neck pain on right s alfredo M54.2 ; Abdominal discomfort R10.9 ; Former smoker Z87.891 ; Benign prostatic hyperplasia, unspecified whether lower urinary tract symptoms present N40.0 ; History of pancreatitis Z87.19 and Mass in neck R22.1 Davin Castellanos III, MD [address] [place] [address] [place] [address] 07/08/2024 Davin Castellanos Abdominal discomfort R10.9 ; Benign prostatic hyperplasia, unspecified whether lower urinary tract symptoms present N40.0 ; Lump in neck R22.1 ; Duodenitis K29.80 ; Lumbar spondylosis M47.816 ; Old tear of meniscus of right knee, unspecified meniscus, unspecified tear type M23.206 ; Former smoker Z87.891 ; Overweight E66.3 and Cervical radiculopathy M54.12 Davin Castellanos III, MD [address] [place] [address] [place] [address] 07/15/2024 Davin Castellanos Impacted cerumen, unspecified ear H61.20 ; Lumbar spondylosis M47.816 and Former smoker Z87.891 Davin Castellanos III, MD [address] [place] [address] [place] [address] 08/10/2024 Davin Castellanos Cervical radiculopat hy M54.12 ; Unspecified hearing loss H91.90 ; Abdominal discomfort R10.9 ; Lump in neck R22.1 ; Benign prostatic hyperplasia, unspecified whether lower urinary tract symptoms present N40.0 ; Former smoker Z87.891 and Overweight E66.3 Davin Castellanos III, MD [address] [place] [address] [place] [address] 08/17/2024 Davin Castellanos Lumbar spondylosis M47.816 ; Former smoker Z87.891 ; History of pancreatitis Z87.19 ; Overweight E66.3 ; Benign prostatic hyperplasia, unspecified whether lower urinary tract symptoms present N40.0 ; Cervical radiculopathy M54.12 and Unspecified hearing loss H91.90 Davin Castellanos III, MD [address] [place] [address] [place] [address] 12/02/2023 Davin Castellanos Elevated lipase R74. 8 Davin Castellanos III, MD [address] [place] [address] [place] [address] 01/29/2024 Davin Castellanos III, MD [address] [place] [address] [place] [address] 02/06/2024 Davin Castellanos Mass in neck R22.1 Davin Castellanos III, MD [address] [place] [address] [place] [address] 04/01/2024 Davin Castellanos Cervical pain (neck) M54.2 Davin Castellanos III, MD [address] [place] [address] [place] [address] 04/01/2024 Davin Castellanos III, MD [address] [place] [address] [place] [address] 04/07/2024 Davin Castellanos III, MD [address] [place] [address] [place] [address] 04/26/2024 Davin Castellanos Neck pain on right [...] 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 The abdominal discomfort and complaint has been [...] Impacted cerumen, unspecified ear (ICD-10 - H61.20) The cerumen was easily removed.His hearing did not improve. Therefore, he was referred to audiology for testing. 07/15/2024 Lumbar spondylosis (ICD-10 - M47.816) He has occasional back pain which is well controlled with yxrn-poq-drttixt medication. He is avoiding heavy lifting and exertion. 08/10/2024 Cervical radiculopathy (ICD-10 - M54.12) He has pain when he rotates his neck and he has failed to improve with physical therapy. Therefore an MRI will be ordered to look for a surgical solution. The pain is 7/10 and radiates into his shoulder and upper left arm 08/10/2024 Unspecified hearing loss (ICD-10 - H91.90) He complains of bilateral hearing loss of long-standing. He does not wish to have a further evaluation today. 08/17/2024 Former smoker (ICD-10 - Z87.891) He is well motivated not to smoke. We formed a plan to prevent relapse and times of stress and illness. 08/17/2024 Lumbar spondylosis (ICD-10 - M47.816) His low back pain which has been well-controlled has worsened. However, his neck is the main problem and he wants this addressed first. Diagnostic and therapeutic efforts will be directed toward the cervical spondylosis. 12/02/2023 Elevated lipase (ICD-10 - R74.8) His [...] back pain which is well controlled with hqle-coq-icolape medication. He is avoiding heavy lifting and [...] I have attempted to reassure him today. 07/15/2024 Former smoker (ICD-10 - Z87.891) He is well motivated not to smoke. We formed a plan to prevent relapse and times of stress and illness. 08/10/2024 Abdominal discomfort (ICD-10 - R10.9) His amylase is normal, but his lipase is slightly elevated. An ultrasound of his abdomen will be ordered to assess stability of retract and pancreas. He is able to consume food and fluids. He has had no nausea or vomiting. He seems medically stable. 08/17/2024 History of pancreatitis (ICD-10 - Z87.19) He has consumed a healthy, normal diet and has had no further episodes of abdominal pain. He has gained several pounds and his nutrition seems adequate. 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 The abdominal discomfort and complaint has been evaluated thoroughly in the past and the only findings for inflammation of the duodenum. He will continue on current therapy and database will be reviewed. 08/10/2024 Lump in neck (ICD-10 - R22.1) He says he can still feel the lump in his right neck which is concern to him. He was given an appointment to return to the office for further evaluation. 08/17/2024 Overweight (ICD-10 - E66.3) He has gained 10 pounds now wearing 198. His body mass index is 26. We discussed diet and nutrition and made a plan to stabilize his weight gain. 08/22/2023 History of pancreatitis (ICD-10 - Z87.19) [...] back pain which is well controlled with kdbb-mcz-uorzvei medication. He is avoiding heavy lifting and exertion. 08/10/2024 Benign prostatic hyperplasia, unspecified whether lower urinary tract symptoms present (ICD-10 - N40.0) He rises from sleep 2 or 3 times a night to urinate. He rises 3 times some nights. We discussed lifestyle modification is aware reducing nocturia. 08/17/2024 Benign prostatic hyperplasia, unspecified whether lower urinary tract symptoms present (ICD-10 - N40.0) He rises from sleep 2 or 3 times a night to urinate. He rises 3 times some nights. We discussed lifestyle modification is aware reducing nocturia. 01/30/2024 Benign prostatic hyperplasia, unspecified whether lower [...] the right knee is no longer painful. 08/10/2024 Former smoker (ICD-10 - Z87.891) He is well motivated not to smoke. We formed a plan to prevent relapse and times of stress and illness. 08/17/2024 Cervical radiculopathy (ICD-10 - M54.12) He has pain when he rotates his neck and he has failed to improve with physical therapy. Therefore an MRI will be ordered to look for a surgical solution. The pain is 7/10 and radiates into his shoulder and upper left arm. Diagnosis and therapeutics are in effect. 01/30/2024 Overweight (ICD-10 - E66.3) He remains slightly overweight. We discussed several weight loss strategies today. 07/08/2024 Former smoker (ICD-10 - Z87.891) He is well motivated not to smoke. We formed a plan to prevent relapse and times of stress and illness. 08/10/2024 Overweight (ICD-10 - E66.3) He remains slightly overweight. We discussed several weight loss strategies today. 08/17/2024 Unspecified hearing loss (ICD-10 - H91.90) He complains of bilateral hearing loss of long-standing. He does not wish to have a further evaluation today. 01/30/2024 Former smoker (ICD-10 - Z87.891) He [...] Order Date PROFILE, FASTING (COMPREHENSIVE METABOLI C) 08/03/2021 PROFILE, FASTING (COMPREHENSIVE METABOLI C) 08/13/2022 PROFILE, FASTING (COMPREHENSIVE METABOLI C) 07/08/2024 PROFILE, FASTING (COMPREHENSIVE METABOLI C) 11/12/2021 PROFILE, FASTING (COMPREHENSIVE METABOLI C) 08/22/2023 PROFILE, RANDOM (COMPREHENSIVE METABOLIC ) 06/04/2023 PROFILE, RANDOM (COMPREHENSIVE METABOLIC ) 06/21/2019 AMYLASE 08/03/2021 LIPASE 08/03/2021 LIPID PANEL 06/21/2019 LIPID PANEL 08/13/2022 LIPID PANEL 08/03/2021 LDH 06/04/2023 PSA, TOTAL 06/04/2023 PSA, TOTAL 06/21/2019 PSA, TOTAL 07/08/2024 PSA, TOTAL 11/12/2021 PSA, TOTAL 08/13/2022 PSA, TOTAL 08/03/2021 CBC w DIFF 08/03/2021 CBC w DIFF 06/21/2019 CBC w DIFF 11/12/2021 CBC w DIFF 08/13/2022 SED RATE (ESR) 08/03/2021 SED RATE (ESR) 06/04/2023 SED RATE (ESR) 06/21/2019 URINALYSIS (UA) 06/04/2023 MRI LUMBAR SPINE NO CONTRAST 08/17/2024 XR CHEST 2 VIEW PA & LAT 08/17/2024 CBC WITH AUTO DIFF 08/22/2023 CBC WITH AUTO DIFF 06/04/2023 CBC WITH AUTO DIFF 07/08/2024 Lipid Panel 11/12/2021 Lipid Panel 08/22/2023 Lipid Panel 07/08/2024 Amylase 07/08/2024 Amylase 06/04/2023 Lipase 11/12/2021 Lipase 07/08/2024 Lipase 06/04/2023 Urine Culture 06/04/2023 FL barium swallow 07/14/2024 MR cervical spine wo con 07/16/2024 Next Appt Details Provider Name:Davin Castellanos, 09/17/2024 03:15:00 PM, [address] [facility] [address], [place], [address], Provider Name:Davin Castellanos, 04/05/2025 04:00:00 PM, [address] [facility] [address] [place], [place], [address], Insurance Providers Payer Name Payer Address Payer Phone Subscriber Number Group Number Insured Name Patient Relationship to Insured Coverage Start Date Coverage End Date [address] [place] [phone] [id number] O Sekou Short Self - patient is the insured Medical (General) History Medical History History ICD Code Medial epicondylitis, right elbow M77.01 Lumbar spondylosis M47.816 Epigastric abdominal pain R10.13 overweight former smoker torn meniscus right knee hemorrhoids duodenitis pancreatitis 2011 Surgical History Surgery Date(Month/Year) right knee arthroscopic surgery 2010 bilateral cataract surgery Right knee arthroscopic meniscectomy 200 8 Upper Gastointestinal endoscopy Colonoscopy
--- OUTSIDE RECORDS SUMMARY | 2024-08-21 09:06 | XMS_ITS ---
Author Organization Davin Castellanos III, MD Address [address] [address] Care Team Providers Care Dumper Operator Name Role Phone Davin Castellanos Primary Care [...] Provider Speciality Internal M edicine Referred Provider [facility] er, Audiology Referred Provider Specialty Otolaryngolo gy General Notes Jacinto Lmoax ASMA 01:36:02 PM >Referral faxed to [facility] Speech and Hearing Referral Priority Routine REASON FOR VISIT Ear Lavage, Cerumen impaction Medications Medication SIG (Take, Route, Fr equency, [...] Problem Status W/U Status Risk Notes Problem [id number] 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) Active confirmed Problem Impacted cerumen (04111099) Impacted cerumen, unspecified ear (H61.20) Active confirmed The cerumen was easily removed.His hearing did not improve. Therefore, he was referred to audiology for testing. Vital Signs Blood pressure systolic 150 mm Hg 07/15/19 Blood pressure diastolic 85 mm Hg 025 Heart Rate 65 /min 07/15/2024 Height 72 in 07/15/2024 Weight 188 lbs 07/15/2024 BMI 25.49 kg/m2 07/15/2024 Encounters Encounter Location Date Provider Diagnosis Davin Castellanos III, MD [address] [place] [address] [place] [address] 07/15/2024 Davin Castellanos Impacted cerumen, unspecified ear H61.20 ; Lumbar spondylosis M47.816 and Former smoker Z87.891 Assessments Encounter Date Diagnosis (ICD Code) Assessment Notes Treatment Notes Treatment Clinical Notes 07/15/2024 Impacted cerumen, unspecified ear (ICD-10 - H61.20) The cerumen was easily removed.His hearing did not improve. Therefore, he was referred to audiology for testing. 07/15/2024 Lumbar spondylosis (ICD-10 - M47.816) He has occasional back pain which is well controlled with gsxf-tqm-ogplymt medication. He is avoiding heavy lifting and exertion. 07/15/2024 Former smoker (ICD-10 - Z87.891) He is well motivated not to smoke. We formed a plan to prevent relapse and times of stress and illness. Plan Of Treatment Medication Medication Name Sig Start Date Stop Date Notes Omeprazole 20 MG as directed Orally Once a day Ibuprofen 800 MG 1 tablet with food o r milk as needed Orally every 8 hrs Ondansetron HCl 4 MG 1 tablet Orally rodger ry 4 hours for nausea Referrals Referral Date Details 07/15/2024 07/15/2024, Consult and Treat, Audiology [facility] Next Appt Details Follow Up: 2 Months, Reason: ov Provider Name:Davin Tomasrne, 09/17/2024 03:15:00 PM, [address] [place] [address] [address], [place], [address], Provider Name:Davin Clevelandne, 04/05/2025 04:00:00 PM, [address] [place] [address] [address], [place], [address], Procedure Notes * Category Sub-Category Detail Notes Ear lavage Procedure Under direct vis ualization, both ears, irrigated with water/H2O2 Post-procedure Successful Progress Notes * ADELSO FreddyjoseDOB: [birth year] (59 yo M)Acc No.[id number]:07/15/2024 Patient:?Sekou DARDEN Provider:?Davin Castellanos MD :1965???Age:59 Y???Sex:Male Rohan e:07/15/2024 Address:[address] [place], [place] [id number] Subjective: * Chief Complaints: * ???Ear LavageCerumen impacti on * HPI: ???COVID-19 Screening:? He has bilateral cerumen impaction and comes in for warm water irrigation to remove the wax.? This was done without trauma. ?Questions?Have you had any new onset fever, chills, [...] 1.?Impacted cerumen, unspeci fied ear - H61.20 (Primary)???Notes :The cerumen was easily removed.His hearing did not improve.? Therefore, he was referred to audiology for testing.???2.?Lumbar spondylosis - M47.816???Notes :He has occasional back pain which is well controlled with jpgs-ctu-rufldxi medication. He is avoiding heavy lifting and exertion.???3.?Former smoker - Z87.891???Notes :He is well motivated not to smoke. We formed a plan to prevent relapse and times of stress and illness.??? Plan: * Treatment: 2.?Others? Referral To:Audiology [facility]??Otolaryngology ?Reason:Consult and Treat * Procedures:?Ear lavage:?Procedure?Under direct visualization, both ears, irrigated with water/H2O2.?Post-procedure?Successful.? * Procedure Codes:?43077 EAR I RRIGATION * Preventive Medicine:? ??Counseling:?Care [...] Medical or Other reason not done * Follow Up:?2 Months (Reason: ov) * Images: * Sign off status: Completed true * Provider:?Davin Castellanos MD Date:?06/20 Generated for Perezi everette/Javon/eTransmitting on:?08/21/2024 09:06 AM EDT History and Physical Notes * HPI (History of Present Illness) Category Sub-Category Detail Notes COVID-19 Screening Questions Have you had any new onset fever, chills, cough, congestion, sore throat, shortness of breath, muscle aches?: No Consultation Request Notes Referral Date Referring Provider Referred Provider Not es 07/15/2024 Davin Castellanos [facility], Aud iology Consult and Treat
--- OUTSIDE RECORDS SUMMARY | 2024-08-21 09:06 | XMS_ITS | Clinical Summary ---
Author Organization [address] Address [address] [place] [address] Phone Care Team Providers Care Slime Plant Operator Name Role Phone Davin Castellanos MD Primary Care Provider [phone] Allergies No known active allergies Medications ondansetron (ZOFRAN) 4 mg tablet Take 1 tablet (4 mg total) by mouth every 8 (eight) hours if needed for nausea. 06/19/2024 Active omeprazole (PriLOSEC) [address] capsule Take 1 capsule (20 mg total) by mouth 1 (one) time each day. 06/15/2024 Active Active Problems Problem Noted Date Diagnosed Date Gastroesophageal reflux disease without esophagi tis 08/04/2024 Left upper quadrant abdominal pain 08/04/2024 Weight loss, abnormal 08/04/2024 Nausea 08/04/2024 Encounters Date Type Department Care Team Description 08/04/2024 8:40 AM EDT Office Visit Gastroenterology - [address] [place] [phone] Wellington Mg MD Gastroesophageal reflux disease without esophagitis (Primary Dx); Left upper quadrant abdominal pain; Weight loss, abnormal; Nausea from Last 3 Months Social History Tobacco Use Types Packs/Day Years Used Date Smoking Tobacco: Never Smokeless Tobacco: Never Tobacco Cessation:Counseling Given: Not Answered Alcohol Use Standard Drinks/Week Comments Never 0 (1 standard drink = 0.6 oz pur e alcohol) Sex and Gender Information Value Date Recorded Sex Assigned at Not on file Legal Sex Male 6:03 PM EST Gender Identity Not on file Sexual Orientation Not on file Obstetrics History Last Filed Vital Signs Vital Sign Reading Time Taken Comments Blood Pressure - - Pulse - - Temperature - - Respiratory Rate - - Oxygen Saturation - - Inhaled Oxygen Concentration - - Weight 85.3 kg (188 lb) 08/04/2024 8:40 AM EDT Height 188 cm (6' 2 ) 08/04/2024 8:40 AM EDT Body Mass Index 24.14 08/04/2024 8:40 AM EDT Plan of Treatment Health Maintenance Due Date Last Done Comments Pneumococcal Vaccine: 50+ Years (1 of 1 - PCV) 2013 Zoster Vaccines (1 of 2) 2013 DTaP,Tdap,and Td Vaccines (4 - Td or Tdap) 10/06/2023 10/05/2013, 03/03/2009, 07/22/1994 COVID-19 Vaccine (2023-2 5 season) 2024 Cholesterol Screening (Lipid Panel) 04/01/2024 Depression Screening 04/01/2024 HIV Screening 04/01/2024 Hepatitis C Screening 04/01/2024 Medicare Annual Wellness Visit 04/01/2024 Social Influencers of Health Screening 04/01/2024 Influenza Vaccine (Season Ended) 2025 Colorectal Cancer Screening: Colonoscopy 10/17/2032 10/17/2022 RSV Immunization Adult Patients (1 - 1-dose 75+ series) 2038 HIB [...] age to complete this topic Pneumococcal Vaccine: Pediatrics (0 to 5 Years) and At-Risk Patients (6 to 64 Years) Aged Out No longer eligible b ased on patient's age to complete this topic RSV Immunization Patients Under 20 months Aged Out No longer eligible b ased on patient's age to complete this topic Varicella Vaccines Aged Out No longer eligible based on patient's age to complete this topic Procedures Procedure Name Priority Date/Time Associated Diagnosis Comments EXTERNAL COLONOSCOPY REPORT Routine 10/17/2022 9:56 AM EDT from Last 3 Months or Most Recently Relevant to Health Maintenance Results * External Colonoscopy Report (10/17/2022 9:56 AM EDT) Anatomical Region Laterality Modality Endoscopy us Historical Provider GI~PROCEDURE ORDERABLES F inal Result from Last 3 Months or Most Recently Relevant to Health Maintenance Insurance [employer] Care Teams Slime Plant Operator Relationship Specialty Start Date End Date Davin Castellanos MD [address] [facility] [address] [place] [address] PCP - General Oncology 04/01/24
--- OUTSIDE RECORDS SUMMARY | 2024-08-21 09:06 | XMS_ITS ---
Author Organization Davin Castellanos III, MD Address [address] [place] [address] Care Team Providers Care Animal Damage Control Agent Name Role Phone Davin Castellanos Primary Care Provider [phone] Allergies Allergen (clinical drug ingredient) Drug/Non Drug Allergy documented on EMR Reaction Allergy Type Onset Date Status Sulfamethoxazole nausea Drug Allergy Active REASON FOR VISIT Neck pain radiant to the left shoulder, Severe low back pain for 2 months, Upcoming upper endoscopy Medications Medication SIG (Take, Route, Fr equency, Duration) Notes Start Date End Date Status Omeprazole 20 MG as directed Orally Once a day Active Ibuprofen 800 MG 1 tablet with food o r milk as needed Orally every 8 hrs Active Ondansetron HCl 4 MG 1 tablet Orally rodger ry 4 hours for nausea Active Omeprazole 20 MG 1 capsule Orally Once a day Active Social History Tobacco Use: Social History Observation Description Date Details (start date - stop date) Former Smoker NA - NA Sex Assigned At : Social History Observation Description Sex Assigned At Male Tobacco Use/Smoking Question Answer Notes Patient is a former smoker How long has it been since you last smoked? > 10 years Additional Findings: Tobacco Non-User Ex-cigaret te smoker Vital Signs Temperature 97.0 degrees Fahrenheit 08/18/19 25 Blood pressure systolic 137 mm Hg 08/18/19 25 Blood pressure diastolic 81 mm Hg 025 Heart Rate 80 /min 08/17/2024 Height 72 in 08/17/2024 Weight 198 lbs 08/17/2024 BMI 26.85 kg/m2 08/17/2024 Encounters Encounter Location Date Provider Diagnosis Davin Castellanos III, MD [address] [place] [address] [place] [address] 08/17/2024 Davin Castellanos Lumbar spondylosis M47.816 ; Former smoker Z87.891 ; History of pancreatitis Z87.19 ; Overweight E66.3 ; Benign prostatic hyperplasia, unspecified whether lower urinary tract symptoms present N40.0 ; Cervical radiculopathy M54.12 and Unspecified hearing loss H91.90 Assessments Encounter Date Diagnosis (ICD Code) Assessment Notes Treat ment Notes Treatment Clinical Notes 08/17/2024 Lumbar spondylosis (ICD-10 - M47.816) His low back pain which has been well-controlled has worsened. However, his neck is the main problem and he wants this addressed first. Diagnostic and therapeutic efforts will be directed toward the cervical spondylosis. 08/17/2024 Former smoker (ICD-10 - Z87.891) He is well motivated not to smoke. We formed a plan to prevent relapse and times of stress and illness. 08/17/2024 History of pancreatitis (ICD-10 - Z87.19) He has consumed a healthy, normal diet and has had no further episodes of abdominal pain. He has gained several pounds and his nutrition seems adequate. 08/17/2024 Overweight (ICD-10 - E66.3) He has gained 10 pounds now wearing 198. His body mass index is 26. We discussed diet and nutrition and made a plan to stabilize his weight gain. 08/17/2024 Benign prostatic hyperplasia, unspecified whether lower urinary tract symptoms present (ICD-10 - N40.0) He rises from sleep 2 or 3 times a night to urinate. He rises 3 times some nights. We discussed lifestyle modification is aware reducing nocturia. 08/17/2024 Cervical radiculopathy (ICD-10 - M54.12) He has pain when he rotates his neck and he has failed to improve with physical therapy. Therefore an MRI will be ordered to look for a surgical solution. The pain is 7/10 and radiates into his shoulder and upper left arm. Diagnosis and therapeutics are in effect. 08/17/2024 Unspecified hearing loss (ICD-10 - H91.90) He complains of bilateral hearing loss of long-standing. He does not wish to have a further evaluation today. Plan Of Treatment Medication Medication Name Sig Start Date Stop Date Notes Omeprazole 20 MG as directed Orally Once a day Ibuprofen 800 MG 1 tablet with food o r milk as needed Orally every 8 hrs Ondansetron HCl 4 MG 1 tablet Orally rodger ry 4 hours for nausea Omeprazole 20 MG 1 capsule Orally Once a day Pending Test Test Name Order Date MRI LUMBAR SPINE NO CONTRAST 08/17/2024 XR CHEST 2 VIEW PA & LAT 08/17/2024 Next Appt Details Follow Up: 3 Weeks, Reason: Office visit Provider Name:Davin Castellanos, 09/17/2024 03:15:00 PM, [address] [place] [address] [address], [place], [phone], Provider Name:Davin Castellanos, 04/05/2025 04:00:00 PM, [address] [place] [address] [address], [place]IA, [phone], Progress Notes * ADELSO FreddyjoseDOB: [birth year] (59 yo M)Acc No.[id number]:08/17/2024 Progress Notes Patient:?Sekou DARDEN Provider:?Davin Castellanos MD :1965???Age:59 Y???Sex:Male Rohan e:08/17/2024 Address:[address] [place], [place] [id number] Subjective: * Chief Complaints: * ???Neck pain radiant to the left shoulderSevere low back pain for 2 monthsUpcoming upper endoscopy * HPI: ???COVID-19 Screening:?He returns for ongoing follow-up of numerous complaints.? He continues to have severe neck pain that radiates into his left shoulder with range of motion of the neck.? He has low back pain the last 2 months that he finds severe.? He has an appointment for an upper endoscopy with Dr. Mg in in the near future to evaluate abdominal pain.His hearing loss is unchanged.? His abdominal discomfort is unchanged.? His hearing has improved after the cerumen disimpaction.? He has no new complaints.? He has been compliant with his medication.? His examination today was unchanged. ?Questions?Have you had any new onset fever, chills, cough, congestion, sore throat, shortness of breath, muscle aches??No * ROS:?General/Constitutional:?pain?Neck that radiates to the Left shoulder, low back pain, upper abdominal pain.?Chills?denies.?Fatigue?admits.?Fever?denies.?ENT:?Decreased hearing?in both ears.?Respiratory:?Cough?denies.?Cardiovascular:?Chest pain with exertion?denies.?Dyspnea on exertion?denies.?Shortness of breath?denies.?Gastrointestinal:?Constipation?occasional.?Decreased appetite?denies.?Diarrhea?that is frequent.?Heartburn?denies.?Nausea?denies.?Rectal bleeding?denies.?Vomiting?denies.?Hematology:?bruising?denies.?petechiae?denies.?Swollen glands?none have been noted.?Genitourinary:?Frequent urination?once a night.?Musculoskeletal:?Muscle aches?denies.?Painful joints?denies.?Sciatica?denies.?Weakness?denies.?Skin:?Itching?denies.?Rash?denies.?Skin lesion(s)?denies.?Neurologic:?Difficulty speaking?denies.?Dizziness?denies.?Headache?denies.?Low back pain?that is chronic.?Psychiatric:?Depressed mood?denies.? * Medical History:? * Surgical History:?Colonoscop y [...] tablet Orally every 4 hours for nausea Medication List reviewed and reconciled with the patientTaking Omeprazole 20 MG Capsule Delayed Release as directed Orally Once a day Taking Ibuprofen 800 MG Tablet 1 tablet with food or milk as needed Orally every 8 hrs Taking Ondansetron HCl 4 MG Tablet 1 tablet Orally every 4 hours for nausea Medication List reviewed and reconciled with the patient * Allergies:?Sulfamethoxazole: nausea - Side Effectsno[Allergies Verified] Objective: * Vitals:?Ht: 72 , Wt: 198, BM I:26.85, BP: 137/81, HR: 80, Temp: 97.0, Ht-cm: 182.88, Wt-k.81. * Examination: ???General Examination: ?GENERAL APPEARANCE:?pleasant, well nourished, well developed, in no acute distress, calm and relaxed, overweight, man.?HEAD:?atraumatic, normocephalic.?EYES:?eomi, perrla, anicteric, conjugate.?EARS:?normal.?NOSE:?septum intact.?ORAL CAVITY:?normal, unremarkable.?NECK/THYROID:?no jugular venous distention, no carotid bruit, thyroid normal, Lateral rotation causes pain that radiates to the left shoulder, decreased range of motion of the neck in all directions.?LYMPH NODES:?no enlarged lymph nodes,spleen normal.?SKIN:?no suspicious lesions, anicteric.?HEART:?no clicks, gallops, murmurs, or rubs, regular rhythm, S1, S2 normal, no s3, or vascular bruits.?LUNGS:?clear to auscultation .?BREASTS:??no masses palpable bilaterally.?ABDOMEN:?bowel sounds normal, no ascites, no organomegaly, no mass, overweight.?RECTAL EXAM:?not examined.?MUSCULOSKELETAL:?extremities unremarkable, no clubbing, cyanosis or edema, Decreased range of motion lumbar spine.?PERIPHERAL PULSES:?normal.?NEUROLOGIC:?alert and oriented, cranial nerves 2-12 grossly intact, deep tendon reflexes 2+ symmetrical, motor strength normal upper and lower extremities, sensory exam intact.?PSYCH:?alert, oriented, anxious appearing.? Assessment: * Assessment: 1.?Lumbar spondylosis - M47. 816 (Primary)???Notes :His low back pain which has been well-controlled has worsened.? However, his neck is the main problem and he wants this addressed first.? Diagnostic and therapeutic efforts will be directed toward the cervical spondylosis.???2.?Former smoker - Z87.891???Notes :He is well motivated not to smoke. We formed a plan to prevent relapse and times of stress and illness.???3.?History of pancreatitis - Z87.19???Notes :He has consumed a healthy, normal diet and has had no further episodes of abdominal pain. He has gained several pounds and his nutrition seems adequate.???4.?Overweight - E66.3???Notes :He has gained 10 pounds now wearing 198.? His body mass index is 26.? We discussed diet and nutrition and made a plan to stabilize his weight gain.???5.?Benign prostatic hyperplasia, unspecified whether lower urinary tract symptoms present - N40.0???Notes :He rises from sleep 2 or 3 times a night to urinate. He rises 3 times some nights. We discussed lifestyle modification is aware reducing nocturia.???6.?Cervical radiculopathy - M54.12???Notes :He has pain when he rotates his neck and he has failed to improve with physical therapy. Therefore an MRI will be ordered to look for a surgical solution. The pain is 7/10 and radiates into his shoulder and upper left arm.? Diagnosis and therapeutics are in effect.???7.?Unspecified hearing loss - H91.90???Notes :He complains of bilateral hearing loss of long-standing. He does not wish to have a further evaluation today.??? Plan: * Treatment: 2.?Others? Continue Omeprazole Capsule Delayed Release, 20 MG, as directed, Orally, Once a day;?Continue Ibuprofen Tablet, 800 MG, 1 tablet with food or milk as needed, Orally, every 8 hrs;?Continue Ondansetron HCl Tablet, 4 MG, 1 tablet, Orally, every 4 hours for nausea.?? * Imaging:? * ?Imaging: XR CHEST 2 VIE W PA & LAT * Procedure Codes:? * Preventive Medicine:? ??Counseling:?Care goal follow-up plan:?Counseling for abnormal BMI given?Yes ?Smoking/Tobacco Use?Patient counseled on the dangers of tobacco use and urged to quit.?08/17/2024 * Follow Up:?3 Weeks (Reason: Office visit) * Images: * Sign off status: Completed true * Provider:?Davin Castellanos MD Date:?05/2024 Generated for Perezi everette/Javon/eTransmitting on:?08/21/2024 09:06 AM EDT History and Physical Notes * HPI (History of Present Illness) Category Sub-Category Detail Notes COVID-19 Screening Questions Have you had any new onset fever, chills, cough, congestion, sore throat, shortness of breath, muscle aches?: No Examination Category Sub-Category Detail Notes General Examination GENERAL APPEARANCE: pleasant , well nourished, well developed, in no acute distress, calm and relaxed, overweight, man HEAD: atraumatic, normocep halic EYES: eomi, perrla, anicte jak, conjugate EARS: normal NOSE: septum intact NECK/THYROID: no jugular venous di stention, no carotid bruit, thyroid normal, Lateral rotation causes pain that radiates to the left shoulder, decreased range of motion of the neck in all directions HEART: no clicks, gallops, murmurs, or rubs, regular rhythm, S1, S2 normal, no s3, or vascular bruits LUNGS: clear to auscultatio n ABDOMEN: bowel sounds normal, no ascites, no organomegaly, no mass, overweight NEUROLOGIC: alert and oriented, cranial nerves 2-12 grossly intact, deep tendon reflexes 2+ symmetrical, motor strength normal upper and lower extremities, sensory exam intact SKIN: no suspicious lesion s, anicteric PERIPHERAL PULSES: normal BREASTS: no masses palpable b ilaterally MUSCULOSKELETAL: extremities unremark able, no clubbing, cyanosis or edema, Decreased range of motion lumbar spine LYMPH NODES: no enlarged lymph no marissa,spleen normal RECTAL EXAM: not examined PSYCH: alert, oriented, anx ious appearing ORAL CAVITY: normal, unremarkable
--- OUTSIDE RECORDS SUMMARY | 2024-08-21 09:06 | XMS_ITS ---
Author Organization Davin Castellanos III, MD Address [address] [place] [address] [place] [address] Care Team Providers Care Department Editor Name Role Phone Davin Castellanos Primary Care Provider Allergies Allergen (clinical drug ingredient) Drug/Non Drug Allergy documented on EMR Reaction Allergy Type Onset Date Status Sulfamethoxazole nausea Drug Allergy Active REASON FOR VISIT Lumpright neck, Cervical radiculopathy, History of pancreatitis, Benign prostatic hypertrophy Medications Medication SIG (Take, Route, Fr equency, Duration) Notes Start Date End Date Status Ondansetron HCl 4 MG 1 tablet Orally rodger ry 4 hours for nausea Active Ibuprofen 800 MG 1 tablet with food o r milk as needed Orally every 8 hrs Active Omeprazole 20 MG as directed Orally Once a day Active Social History [...] Tobacco Non-User Ex-cigaret te smoker Vital Signs Height 72 in 08/10/2024 Weight 188 lbs 08/10/2024 BMI 25.49 kg/m2 08/10/2024 Encounters Encounter Location Date Provider Diagnosis Davin Castellanos III, MD [address] [place] [address] [place] [address] 08/10/2024 Davin Castellanos Cervical radiculopat hy M54.12 ; Unspecified hearing loss H91.90 ; Abdominal discomfort R10.9 ; Lump in neck R22.1 ; Benign prostatic hyperplasia, unspecified whether lower urinary tract symptoms present N40.0 ; Former smoker Z87.891 and Overweight E66.3 Assessments Encounter Date Diagnosis (ICD Code) Assessment Notes Treat ment Notes Treatment Clinical Notes 08/10/2024 Cervical radiculopathy (ICD-10 - M54.12) He [...] wish to have a further evaluation today. 08/10/2024 Abdominal discomfort (ICD-10 - R10.9) His amylase is normal, but his lipase is slightly elevated. An ultrasound of his abdomen will be ordered to assess stability of retract and pancreas. He is able to consume food and fluids. He has had no nausea or vomiting. He seems medically stable. 08/10/2024 Lump in neck (ICD-10 - R22.1) He says he can still feel the lump in his right neck which is concern to him. He was given an appointment to return to the office for further evaluation. 08/10/2024 Benign prostatic hyperplasia, unspecified whether lower urinary tract symptoms present (ICD-10 - N40.0) He rises from sleep 2 or 3 times a night to urinate. He rises 3 times some nights. We discussed lifestyle modification is aware reducing nocturia. 08/10/2024 Former smoker (ICD-10 - Z87.891) He is well motivated not to smoke. We formed a plan to prevent relapse and times of stress and illness. 08/10/2024 Overweight (ICD-10 - E66.3) He remains slightly overweight. We discussed several weight loss strategies today. Plan Of Treatment Medication Medication Name Sig Start Date Stop Date Notes Ondansetron HCl 4 MG 1 tablet Orally rodger ry 4 hours for nausea Ibuprofen 800 MG 1 tablet with food o r milk as needed Orally every 8 hrs Omeprazole 20 MG as directed Orally Once a day Next Appt Details Follow Up: 1 Week, Reason: O V Provider Name:Davin Tomasrne, 09/17/2024 03:15:00 PM, [address] [place] [address] SHERON AMADO, CHRISTIE GARCIA, [address], Provider Name:Davin Tomasrne, 04/05/2025 04:00:00 PM, [address] [place] [address] SHERON AMADO, CHRISTIE GARCIA, [address], Progress Notes * Sekou DARDENDOB: [birth year] (59 yo M)Acc No.[id number]:08/10/2024 Patient:?Sekou DARDEN Provider:?Davin Castellanos MD :1965???Age:59 Y???Sex:Male Rohan e:08/10/2024 Address:[address] [place], [place] [id number] Subjective: * Chief Complaints: * ???Lumpright neckCervical ra diculopathyHistory of pancreatitisBenign prostatic hypertrophy * HPI: ???:?This telehealth visit took place over 15 minutes the patient at home and me in my office.? He gave consent for billing.He had a barium swallow that showed dysmotility and esophageal reflux.? These will be treated.? He denies any aspiration or severe coughing after eating.? He had an MRI of the cervical spine last month. This showed foraminal stenosis and degenerative changes at C4-5 and C5-6.? I have offered to refer him to rehabilitation medicine and pain management but he declined.? He will continue on conservative therapy.? He says he can still feel the lump in the right side of his neck.? He was given an appointment to return to the office.Blood work that was done July 12, 2024 showed white count 5.5, hematocrit 41.1 platelets 166, glucose 104,, BUN 20, creatinine 0.91, total cholesterol 124, triglycerides 70 HDL 40, LDL 70 PSA0.3, amylase 76 lipase 66. ?Telehealth?Location of provider rendering services:?{...} [address] [facility] [address] ?Location of patient:?address listed in demographics for today's visit ?Patient identification confirmed using:?Name, ?Telehealth method:?Telephone only. Patient not visible to care provider. ?Consent:?Patient verbally consented to treatment, Patient verbally consented to billing insurance company, Patient informed of any privacy concerns related to method of visit ?Total time spent with patient (mins)?15 * ROS:?General/Constitutional:?pain?Neck with range of motion.?Chills?denies.?Fatigue?admits.?Fever?denies.?ENT:?Decreased hearing?in both ears.?Respiratory:?Cough?denies.?Cardiovascular:?Chest pain with exertion?denies.?Dyspnea on exertion?denies.?Shortness of breath?denies.?Gastrointestinal:?Constipation?occasional.?Decreased appetite?denies.?Diarrhea?denies.?Heartburn?denies.?Nausea?denies.?Rectal bleeding?denies.?Vomiting?denies.?Hematology:?bruising?denies.?petechiae?denies.?Swollen glands?none have been noted.?Genitourinary:?Frequent urination?twice a night.?Musculoskeletal:?Muscle aches?denies.?Painful joints?denies.?Sciatica?denies.?Weakness?denies.?Skin:?Itching?denies.?Rash?denies.?Skin lesion(s)?denies.?Neurologic:?Difficulty speaking?denies.?Dizziness?denies.?Headache?denies.?Low back pain?denies.?Psychiatric:?Depressed mood?denies.? * Medical History:? * Surgical History:?Colonoscop [...] exposed to asbestos tile. He is from [facility]. He has 2 sons in their 20s [...] Vitals:?Ht: 72 , Wt: 188, BM I:25.49, Ht-cm: 182.88, Wt-k.28. Assessment: * Assessment: 1.?Cervical radiculopathy - M54.12 (Primary)???Notes :He has pain when he rotates his neck and he has failed to improve with physical therapy. Therefore an MRI will be ordered to look for a surgical solution. The pain is 7/10 and radiates into his shoulder and upper left arm???2.?Unspecified hearing loss - H91.90???Notes :He complains of bilateral hearing loss of long-standing.? He does not wish to have a further evaluation today.???3.?Abdominal discomfort - R10.9???Notes :His amylase is normal, but his lipase is slightly elevated. An ultrasound of his abdomen will be ordered to assess stability of retract and pancreas. He is able to consume food and fluids. He has had no nausea or vomiting. He seems medically stable.???4.?Lump in neck - R22.1???Notes :He says he can still feel the lump in his right neck which is concern to him.? He was given an appointment to return to the office for further evaluation.???5.?Benign prostatic hyperplasia, unspecified whether lower urinary tract symptoms present - N40.0???Notes :He rises from sleep 2 or 3 times a night to urinate. He rises 3 times some nights. We discussed lifestyle modification is aware reducing nocturia.???6.?Former smoker - Z87.891???Notes :He is well motivated not to smoke. We formed a plan to prevent relapse and times of stress and illness.???7.?Overweight - E66.3???Notes :He remains slightly overweight. We discussed several weight loss strategies today.??? Plan: * Treatment: * Procedure Codes:? * Preventive Medicine:? ??Counseling:?Care goal follow-up plan:?Counseling for abnormal BMI given?Yes ?Above Normal BMI Follow-up?Dietary management education, guidance, and counseling, Dietary needs education ?Smoking/Tobacco Use?Patient counseled on the dangers of tobacco use and urged to quit.?08/10/2024 * Follow Up:?1 Week (Reason: O V) * Images: * Sign off status: Completed true * Provider:?Davin Castellanos MD Date:?07/18 Generated for Letty gaviria/Javon/eTransmitting on:?08/21/2024 09:05 AM EDT History and Physical Notes * HPI (History of Present Illness) Category Sub-Category Detail Notes Telehealth Location of [facility] rendering services:: {...} [address] [facility] [address] [place] [id number] Location of patient:: address listed in demographics for today's visit Patient identification confirmed using:: Name, Telehealth method:: Telephone only. Meghann ent not visible to care provider. Consent:: Patient verbally c onsented to treatment, Patient verbally consented to billing insurance company, Patient informed of any privacy concerns related to method of visit Total time spent with patient (mins): 15
== END 2024-08-21 09:04 | disposition home or self-care (01) ==
LOC: HO.XRAY 09:03
PROVIDERS: PCP Internal Medicine Medical Oncology; Visit Provider Internal Medicine Medical Oncology
DX: Z87.891 Personal history of nicotine dependence (principal)
CPT/HCPCS: 71046

== ENCOUNTER → 2024-08-21 09:12 | Outpatient (BNV) | payer OTHER, SELFPAY | PROVIDERS: PCP Internal Medicine Medical Oncology; Visit Provider Radiology Diagnostic Radiology | DX: Z87.891 Personal history of nicotine dependence (principal) | CPT/HCPCS: 71046 ==

== ENCOUNTER 2024-10-01 13:49 | Outpatient (AMB) | payer OTHER, SELFPAY ==
--- OUTSIDE RECORDS SUMMARY | 2024-10-01 13:52 | XMS_ITS ---
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 Name Role Phone Davin Castellanos Primary Care Provider [phone] REASON FOR VISIT Refill request Medications Medication SIG (Take, Route, Fr equency, Duration) Notes Start Date End Date Status Ondansetron HCl 4 MG 1 tablet Orally every 4 hours for nausea for 30 days As needed Active Omeprazole 20 MG 1 capsule Orally Onc e a day for 90 days Active Social History Sex Assigned At : Social History Observation Description Sex Assigned At Male Encounters Encounter Location Date Provider Diagnosis Davin Castellanos III, MD [address] [place] [address] [place] [address] 09/23/2024 Davin Castellanos Plan Of Treatment Medication Medication Name Sig Start Date Stop Date Notes Ondansetron HCl 4 MG 1 tablet Orally rodger ry 4 hours for nausea for 30 days Omeprazole 20 MG 1 capsule Orally Onc e a day for 90 days Next Appt Details Provider Name:Davin Castellanos, 11/09/2024 03:45:00 PM, [address] [place] [address] [place], [address], Provider Name:Davin Castellanos, 04/05/2025 04:00:00 PM, [address] [facility] [place], [address], Progress Notes * Sekou DARDENDOB: [birth year] (59 yo M)Acc No.[id number]:09/23/2024 Patient:?Sekou DARDEN :1965???Age:59 Y???Sex:Male Address:[address] [place] [address], [phone] * Refills? Refill Ondansetron HCl Tablet, 4 MG, Orally, 30, 1 tablet, every 4 hours for nausea, 30 days, Refills=11 Refill Omeprazole Capsule Delayed Release, 20 MG, Orally, 90 Capsule, 1 capsule, Once a day, 90 days, Refills=3 * true * Date:? Generated for Letty gaviria/Javon/Olivaitting on:?10/01/2024 01:51 PM EDT
--- OUTSIDE RECORDS SUMMARY | 2024-10-01 13:52 | XMS_ITS | Patient Health Record ---
Author Organization Davin Castellanos III, MD Address [address] [address] Care Team Providers Care Grading Supervisor Name Role Phone Davin Castlelanos Primary Care Provider [phone] Allergies Allergen (clinical drug ingredient) Drug/Non Drug Allergy documented on EMR Reaction Allergy Type Onset Date Status Sulfamethoxazole nausea Drug Allergy Active Results Component Value Reference Range Notes US soft tiss head and/or nec k Reviewed date:05/12/2024 08:44:51 AM Interpretation: Performing Lab: Notes/Report: [address] [address] Ultrasound Report Signed Patient: Sekou Short MR#: [id number] 0164 : 1965 Acct:[id number] Age/Sex: 58 / M ADM Date: 02/13/24 Loc: HO.US Attending Dr: Davin Castellanos MD Ordering Physician: Davin Castellanos MD Date of Service: 02/13/24 Procedure(s): US soft tiss head and/or neck Accession Number(s): [id number] cc: Davin Castellanos MD EXAMINATION: US SOFT [...] by: Steven Zheng MD 03/25/2024 04:09 PM [facility] Dictated By: Steven Zheng MD Signed By: <Electronically signed by Steven Zheng MD in OV> 03/25/24 1609 DD/ 1553 TD/TT: 02/13/24 1554 Scrum Project Manager: [place] [address] Ultrasound Report Signed Patient: Lacho Short MR#: [id number] 0164 : 1965 Acct:[id number] Age/Sex: 58 / M ADM Date: 02/13/24 Loc: HO.US Attending Dr: Davin Castellanos MD Ordering Physician: Davin Castellanos MD Date of Service: 02/13/24 Procedure(s): US sof t tiss head and/or neck Accession Number(s): [id number] cc: Davin Castellanos MD EXAMINATION: US SOFT [...] 03/25/24 1609 DD/ 1553 TD/TT: 02/13/24 1554 Scrum Project Manager: XR soft tissue neck Reviewed date:02/16/2024 08:16:05 AM Interpretation: Performing Lab: Notes/Report: [address] [address] XRay Report Signed Patient: Sekou Short MR#: [id number] 0164 : 1965 Acct:[id number] Age/Sex: 58 / M ADM Date: 01/30/24 Loc: NIC Attending Dr: Davin Castellanos MD Ordering Physician: Davin Castellanos MD Date of Service: 01/30/24 Procedure(s): XR soft tissue neck Accession Number(s): [id number] cc: Davin Castellanos MD EXAMINATION: XR SOFT [...] 02/01/24 1753 DD/ 1604 TD/TT: 01/30/24 1604 Scrum Project Manager: [address] [address] XRay Report Signed Patient: Lacho Short MR#: [id number] 0164 : 1965 Acct:[id number] Age/Sex: 58 / M ADM Date: 01/30/24 Loc: NIC Attending Dr: Davin Castellanos MD Ordering Physician: Davin Castellanos MD Date of Service: 01/30/24 Procedure(s): XR sof t tissue neck Accession Number(s): [id number] cc: Davin Castellanos MD EXAMINATION: XR SOFT [...] 02/01/24 1753 DD/ 1604 TD/TT: 01/30/24 1604 Scrum Project Manager: FL barium swallow (Not yet r eviewed by provider) Interpretation: Performing Lab: Notes/Report: [address] [address] Fluoroscopy Report Signed Patient: Sekou Short MR#: [id number] 0164 : 1965 Acct:[id number] Age/Sex: 59 / M ADM Date: 07/14/24 Loc: NIC Attending Dr: Davin Castellanos MD Ordering Physician: Davin Castellanos MD Date of Service: 07/14/24 Procedure(s): FL barium swallow Accession Number(s): [id number] cc: Davin Castellanos MD EXAMINATION: XR FLUOROSCOPY [...] by: Steven Zheng MD 07/14/2024 04:16 PM [facility] Dictated By: Emery Ernandez Signed By: <Electronically signed by Emery Ernandez in OV> 07/14/24 1616 <Electronically signed by Steven Zheng MD in OV> 07/14/24 1618 DD/ 0840 TD/TT: 07/14/24 0912 Scrum Project Manager: [address] [address] Fluoroscopy Report Signed Patient: Lacho Short MR#: [id number] 0164 : 1965 Acct:[id number] Age/Sex: 59 / M ADM Date: 07/14/24 Loc: HO.XRAY Attending Dr: Davin Castellanos MD Ordering Physician: Davin Castellanos MD Date of Service: 07/14/24 Procedure(s): FL barium swallow Accession Number(s): [id number] cc: Davin Castellanos MD EXAMINATION: XR FLUOROSCOPY [...] by: Steven Zheng MD 07/14/2024 04:16 PM [facility] Dictated By: Emery Ernandez Signed By: <Electron ically signed by Emery Ernandez in OV> 07/14/24 1616 <Electronically sign ed by Steven Zheng MD in OV> 07/14/24 1618 DD/ 0840 TD/TT: 07/14/24 0912 Scrum Project Manager: MR cervical spine wo con (No t yet reviewed by provider) Interpretation: Performing Lab: Notes/Report: [address] [address] Magnetic Resonance Report Signed Patient: Sekou Short MR#: [id number] 0164 : 1965 Acct:[id number] Age/Sex: 59 / M ADM Date: 07/16/24 Loc: HO.MRI Attending Dr: Davin Castellanos MD Ordering Physician: Davin Castellanos MD Date of Service: 07/16/24 Procedure(s): MR cervical spine wo con Accession Number(s): [id number] cc: Davin Castellanos MD CLINICAL HISTORY: Severe [...] Degenerative changes at C4-C5 and C5-C6 causing ndul-ih-kvlrtqpw bilateral neural foraminal stenosis. This document has been electronically signed by: Komal Ang MD on 07/16/2024 20:35:22 Dictated By: Komal Ang MD Signed By: <Electronically signed by Komal Ang MD in OV> 07/16/242035 DD/ 34 TD/TT: 07/16/242034 Scrum Project Manager: [address] [address] Magnetic Resonance Report Signed Patient: Lacho Short MR#: [id number] 0164 : 1965 Acct:[id number] Age/Sex: 59 / M ADM Date: 07/16/24 Loc: HO.MRI Attending Dr: Davin Castellanos MD Ordering Physician: Davin Castellanos MD Date of Service: 07/16/24 Procedure(s): MR paulo ramires spine wo con Accession Number(s): [id number] cc: Davin Castellanos MD CLINICAL HISTORY: Se [...] Degenerative changes at C4-C5 and C5-C6 causing ooho-jq-ilpafkgo bilateral neural foraminal stenosis. This document has be en electronically signed by: Komal Ang MD on 07/16/2024 20:35:22 Dictated By: Komal Ang MD Signed By: <Electron ically signed by Komal Ang MD in OV> 07/16/242035 DD/ 34 TD/TT: 07/16/242034 Scrum Project Manager: XR chest 2V (Not yet reviewe d by provider) Interpretation: Performing Lab: Notes/Report: [place] [address] XRay Report Signed Patient: Sekou Short MR#: [id number] 0164 : 1965 Acct:[id number] Age/Sex: 59 / M ADM Date: 08/21/24 Loc: SATYA.DRAGAN Attending Dr: Davin Castellanos MD Ordering Physician: Davin Castellanos MD Date of Service: 08/21/24 Procedure(s): XR chest 2V Accession Number(s): [id number] cc: Davin Castellanos MD EXAMINATION: XR CHEST 2 VIEWS HISTORY: [employer] COMPARISON: There are no prior studies for comparison. FINDINGS: PA and lateral views of the chest are submitted. There is minimal linear subsegmental atelectasis versus scarring in the lingula. The lungs are otherwise clear. There is no pleural effusion, pneumothorax, or pulmonary vascular congestion. The heart is normal in size. There is mild degenerative disc disease of the spine. XR/XR chest 2V IMPRESSION: Minimal subsegmental atelectasis versus scarring in the lingula. Electronically signed by: Davin Del Rio MD 08/23/2024 10:48 AM EDT RP Dictated By: Davin Del Rio MD Signed By: <Electronically signed by Davin Del Rio MD in OV> 08/23/24 1048 DD/ TD/TT: 08/21/24915 Scrum Project Manager: [address] [address] XRay Report Signed Patient: Lacho Short MR#: [id number] 0164 : 1965 Acct:[id number] Age/Sex: 59 / M ADM Date: 08/21/24 Loc: HO.XRAY Attending Dr: Davin Castellanos MD Ordering Physician: Davin Castellanos MD Date of Service: 08/21/24 Procedure(s): XR chest 2V Accession Number(s): [id number] cc: Davin Castellanos MD EXAMINATION: XR CHEST 2 VIEWS HISTORY: [employer] S[employer]ER COMPARISON: There ar e no prior studies for comparison. FINDINGS: PA and lat eral views of the chest are submitted. There is minimal linear subse gmental atelectasis versus scarring in the lingula. The lungs are otherw ise clear. There is no pleural effusion, pneumothorax, or pul monary vascular congestion. The heart is normal in size. There is mild degenerative disc disease of the spine. X R/XR chest 2V IMPRESSION: Minimal subsegmental atelectasis versus scarring in the lingula. Electronically zohra d by: Davin Del Rio MD 08/23/2024 10:48 AM EDT RP Dictated By: Davin Del Rio MD Signed By: <Gabe benitez signed by Davin Del Rio MD in OV> 08/23/24 1048 DD/ 0912 TD/TT: 08/21/249[address] Scrum Project Manager: Reason For Referral Reason chronic cervical nec k pain with ROM evaluate and treat Diagnosis 1 Cervical pain (neck) (M54.2) Referral Organization Davin Castellanos III, MD Referring Provider First Name Davin Referring Provider Last Name Castellanos Referring Provider Speciality Internal edicine Referred Provider Spine and Gilberto hagen [place] Referred Provider Specialty Physical Med icicaden General Notes Moriah Lan [facility] 04/06 02:47:17 PM >ref/demo/progress note faxed to [facility] the MRI request was denied by Edyta Tejada Suzanne [facility] 04/29/2024 03:46:09 PM >I called was [...] Specialty Gastroentero logy General Notes Moriah Lan [facility] 04/01 02:26:23 PM > I called Dr Mg office made pt appt for 05/02/2024 at 2:45pm arrival with 3pm appt pt called and mailed this information and ref/progress note faxed to Dr Mg at [phone] Referral Priority Routine Referral Appointment Date 05/05/2024 Reason Consult and Treat Diagnosis 1 Unspecified hearing loss (H91.90) Referral Organization Davin Castellanos III, MD Referring Provider First Name Davin Referring Provider Last Name Castellanos Referring Provider Speciality Internal edicine Referred Provider [facility] er, Audiology Referred Provider Specialty Otolaryngolo gy General Notes Jacinto Lomax ASMA 01:36:02 PM >Referral faxed to [facility] Speech and Hearing Referral Priority Routine Reason Consult and Treat Bone Spur L2-3 with Foraminal Narrowing Patient Refuses Injections Diagnosis 1 Lumbar spondylosis ( M47.816) Referral Organization Davin Castellanos III, MD Referring Provider First Name Davin Referring Provider Last Name Castellanos Referring Provider Speciality Internal edicine Referred Provider [facility] Referred Provider Specialty Neurosurgery General Notes Arpita Julio 09/20/2024 10:19:54 AM > Referral, progress note and most recent MRI's faxed. 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 Dr. Coles office was made aware. Referral Priority Routine Medications Medication SIG (Take, Route, Fr equency, Duration) Notes Start Date End Date Status Ondansetron HCl 4 MG 1 tablet Orally every 4 hours for nausea for 30 days As needed Active Ibuprofen 800 MG 1 tablet with food o r milk as needed Orally every 8 hrs Active Omeprazole 20 MG 1 capsule Orally [...] Problem Status W/U Status Risk Notes Problem 8635991 Former smoker (Z87.891) Active confirmed He is well motivated not to smoke. We formed a plan to prevent relapse and times of stress and illness. Problem 693222864 Overweight (E66.3) Active confirmed He is slightly overweight. We discussed diet and nutrition today. I advised him not to try to lose weight until his dysphagia has resolved. Problem Impacted cerumen (43973096) Impacted cerumen, unspecified ear (H61.20) Active confirmed The cerumen was easily removed.His hearing did not improve. Therefore, he was referred to audiology for testing. Problem 58256660 Cervical radiculopathy (M54.12) Active confirmed He has pain when he rotates his neck and he has failed to improve with physical therapy. Therefore an MRI will be ordered to look for a surgical solution. The pain is 7/10 and radiates into his shoulder and upper left arm. Diagnosis and therapeutics are in effect. Problem 27336042 Abdominal discomfort (R10.9) Active confirmed His amylase is normal, but his lipase is slightly elevated. An ultrasound of his abdomen will be ordered to assess stability of retract and pancreas. He is able to consume food and fluids. He has had no nausea or vomiting. He seems medically stable. Problem Duodenitis (38472419) Duodenitis (K29.80) Active confirmed This was found [...] will be reviewed. Problem Lump on neck (827802588) Lump in neck (R22.1) Active confirmed He says he can still feel the lump in his right neck which is concern to him. He was given an appointment to return to the office for further evaluation. Problem 249587879 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) Active confirmed Problem 851371857 Benign prostatic hyperplasia, unspecified whether lower urinary tract symptoms present (N40.0) Active confirmed He rises fro m sleep 2 or 3 times a night to urinate. He rises 3 times some nights. We discussed lifestyle modification is aware reducing nocturia. Problem 944515562 Lumbar spondylosis (M47.816) Active confirmed His low back pain which has been well-controll ed has worsened. However, his neck is the main problem and he wants this addressed first. Diagnostic and therapeutic efforts will be directed toward the cervical spondylosis. Problem 30936200447150 History of pancreatitis (Z87.19) Active confirmed He has consumed a healthy, normal diet and has had no further episodes of abdominal pain. He has gained several pounds and his nutrition seems adequate. Problem 379486130963666 Lateral epicondylitis of right elbow (M77.11) Active confirmed The pain in the elbow has resolved. Problem 387579899 Old tear of meniscus of right knee, unspecified meniscus, unspecified tear type (M23.206) Active confirmed This has been repaired in the right knee is no longer painful. Problem 49528834 Unspecified hearing loss (H91.90) Active confirmed He complains of bilateral hearing loss of long-standing . He does not wish to have a further evaluation today. Vital Signs Heart Rate 80 /min 08/17/2024 Temperature 97.0 degrees Fahrenheit 08/17/2024 Blood pressure diastolic 81 mm Hg 08/17/2024 Height 72 in 09/14/2024 Blood pressure systolic 137 mm Hg 08/17/2024 Weight 198 lbs 09/14/2024 BMI 26.85 kg/m2 09/14/2024 Encounters Encounter Location Date Provider Diagnosis Davin Castellanos III, MD [address] [place] [address] [place] [address] 01/30/2024 Davin Castellanos Neck pain on right [...] Other dysphagia R13.19 Davin Castellanos III, MD [address] [place] [address] [place] [address] 02/06/2024 Davin Castellanos Neck pain on right s alfredo M54.2 ; Mass in neck R22.1 ; Dysphagia R13.10 ; Overweight E66.3 and Former smoker Z87.891 Davin Castellanos III, MD [address] [place] [address] [place] [address] 03/31/2024 Davin Castellanos Neck pain on right s alfredo M54.2 ; Abdominal discomfort R10.9 ; Former smoker Z87.891 ; Benign prostatic hyperplasia, unspecified whether lower urinary tract symptoms present N40.0 ; History of pancreatitis Z87.19 and Mass in neck R22.1 Davin Castellanos III, MD [address] [place] [address] [place] [address] 07/08/2024 Davin Castellanos Abdominal discomfort R10.9 ; Benign prostatic hyperplasia, unspecified whether lower urinary tract symptoms present N40.0 ; Lump in neck R22.1 ; Duodenitis K29.80 ; Lumbar spondylosis M47.816 ; Old tear of meniscus of right knee, unspecified meniscus, unspecified tear type M23.206 ; Former smoker Z87.891 ; Overweight E66.3 and Cervical radiculopathy M54.12 Davin Castellanos III, MD [address] [place] [address] [place] [address] 07/15/2024 Davin Castellanos Impacted cerumen, unspecified ear H61.20 ; Lumbar spondylosis M47.816 and Former smoker Z87.891 Davin Castellanos III, MD [address] [place] [address] [place] [address] 08/10/2024 Davin Castellanos Cervical radiculopat hy M54.12 ; Unspecified hearing loss H91.90 ; Abdominal discomfort R10.9 ; Lump in neck R22.1 ; Benign prostatic hyperplasia, unspecified whether lower urinary tract symptoms present N40.0 ; Former smoker Z87.891 and Overweight E66.3 Davin Castellanos III, MD [address] [place] [address] [place] [address] 08/17/2024 Davin Castellanos Lumbar spondylosis M47.816 ; Former smoker Z87.891 ; History of pancreatitis Z87.19 ; Overweight E66.3 ; Benign prostatic hyperplasia, unspecified whether lower urinary tract symptoms present N40.0 ; Cervical radiculopathy M54.12 and Unspecified hearing loss H91.90 Davin Castellanos III, MD [address] [place] [address] [place] [address] 09/14/2024 Davin Castellanos Overweight E66.3 ; Other dysphagia R13.19 ; Former smoker Z87.891 ; Cervical pain (neck) M54.2 ; Abdominal discomfort R10.9 ; Cervical radiculopathy M54.12 ; Lumbar spondylosis M47.816 ; Old tear of meniscus of right knee, unspecified meniscus, unspecified tear type M23.206 ; Unspecified hearing loss H91.90 and Benign prostatic hyperplasia, unspecified whether lower urinary tract symptoms present N40.0 Davin Castellanos III, MD [address] [place] [address] [place] [address] 09/17/2024 Davin Castellanos III, MD [address] [place] [address] [place] [address] 09/29/2024 Davin Castellanos III, MD [address] [place] [address] [place] [address] 12/02/2023 Davin Castellanos Elevated lipase R74. 8 Davin Castellanos III, MD [address] [place] [address] [place] [address] 01/29/2024 Davin Castellanos III, MD [address] [place] [address] [place] [address] 02/06/2024 Davin Castellanos Mass in neck R22.1 Davin Castellanos III, MD [address] [place] [address] [place] [address] 04/01/2024 Davin Castellanos Cervical pain (neck) M54.2 Davin Castellanos III, MD [address] [place] [address] [place] [address] 04/01/2024 Davin Castellanos III, MD [address] [place] [address] [place] [address] 04/07/2024 Davin Castellanos III, MD [address] [place] [address] [place] [address] 04/26/2024 Davin Castellanos Neck pain on right s alfredo M54.2 Davin Castellanos III, MD [address] [place] [address] [place] [address] 08/24/2024 Davin Castellanos III, MD [address] [place] [address] [place] [address] 09/23/2024 Davin Castellanos Assessments Encounter Date Diagnosis (ICD Code) Assessment Notes Treatment Notes Treatment Clinical Notes 01/30/2024 Duodenitis (ICD-10 - K29.80) This was found in 2016 on upper endoscopy. He continues on acid suppression and uses ondansetron for nausea. He is under the care of a retail area manager. The abdominal discomfort and complaint has been [...] back pain which is well controlled with uhbc-aaz-oasfxkk medication. He is avoiding heavy lifting and [...] will be directed toward the cervical spondylosis. 09/14/2024 Overweight (ICD-10 - E66.3) He is slightly overweight. We discussed diet and nutrition today. I advised him not to try to lose weight until his dysphagia has resolved. 09/14/2024 Other dysphagia (ICD-10 - R13.19) He has canceled the scheduled upper endoscopy because of insurance issues. I have referred him back to the retail area manager for resolution of these issues. 12/02/2023 Elevated lipase (ICD-10 - R74.8) His [...] medicine for injections to relieve the pain. 01/30/2024 Lumbar spondylosis (ICD-10 - M47.816) He has occasional back pain which is well controlled with ofro-hfo-bjsfqdi medication. He is avoiding heavy lifting and [...] several pounds and his nutrition seems adequate. 09/14/2024 Former smoker (ICD-10 - Z87.891) He is well motivated not to smoke. We formed a plan to prevent relapse and times of stress and illness. 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 The abdominal discomfort and complaint has been [...] a plan to stabilize his weight gain. 09/14/2024 Cervical pain (neck) (ICD-10 - M54.2) The pain in his neck to radiates to his shoulder with movement continues. It was not his main complaint today. I made no change in his therapy. 01/30/2024 Old tear of meniscus of right [...] back pain which is well controlled with aldz-egy-gbmnpir medication. He is avoiding heavy lifting and [...] discussed lifestyle modification is aware reducing nocturia. 09/14/2024 Abdominal discomfort (ICD-10 - R10.9) His amylase is normal, but his lipase is slightly elevated. An ultrasound of his abdomen will be ordered to assess stability of retract and pancreas. He is able to consume food and fluids. He has had no nausea or vomiting. He seems medically stable. 01/30/2024 Benign prostatic hyperplasia, unspecified whether lower [...] arm. Diagnosis and therapeutics are in effect. 09/14/2024 Cervical radiculopathy (ICD-10 - M54.12) He has [...] wish to have a further evaluation today. 09/14/2024 Lumbar spondylosis (ICD-10 - M47.816) His low back pain which has been well-controlled has worsened. However, his neck is the main problem and he wants this addressed first. Diagnostic and therapeutic efforts will be directed toward the cervical spondylosis. 01/30/2024 Former smoker (ICD-10 - Z87.891) He is well motivated not to smoke. We formed a plan to prevent relapse and times of stress and illness. 07/08/2024 Overweight (ICD-10 - E66.3) He remains slightly overweight. We discussed several weight loss strategies today. 09/14/2024 Old tear of meniscus of right knee, unspecified meniscus, unspecified tear type (ICD-10 - M23.206) This has been repaired in the right knee is no longer painful. 01/30/2024 Other dysphagia (ICD-10 - R13.19) This [...] into his shoulder and upper left arm 09/14/2024 Unspecified hearing loss (ICD-10 - H91.90) He complains of bilateral hearing loss of long-standing. He does not wish to have a further evaluation today. 09/14/2024 Benign prostatic hyperplasia, unspecified whether lower urinary tract symptoms present (ICD-10 - N40.0) He rises from sleep 2 or 3 times a night to urinate. He rises 3 times some nights. We discussed lifestyle modification is aware reducing nocturia. Plan Of Treatment Pending Test Test Name [...] LDH 06/04/2023 PSA, TOTAL 06/04/2023 PSA, TOTAL 07/08/2024 PSA, TOTAL 06/21/2019 PSA, TOTAL 11/12/2021 PSA, TOTAL 08/13/2022 PSA, TOTAL 08/03/2021 CBC w DIFF 08/13/2022 CBC w DIFF 08/03/2021 CBC w DIFF 06/21/2019 CBC w DIFF 11/12/2021 SED RATE (ESR) 06/21/2019 SED RATE (ESR) 08/03/2021 SED RATE (ESR) 06/04/2023 URINALYSIS (UA) 06/04/2023 MRI LUMBAR SPINE NO CONTRAST 08/17/2024 CBC WITH AUTO DIFF 08/22/2023 CBC WITH AUTO DIFF 06/04/2023 CBC WITH AUTO DIFF 07/08/2024 Lipid Panel 07/08/2024 Lipid Panel 11/12/2021 Lipid Panel 08/22/2023 Amylase 07/08/2024 Amylase 06/04/2023 Lipase 11/12/2021 Lipase 07/08/2024 Lipase 06/04/2023 Urine Culture 06/04/2023 FL barium swallow 07/14/2024 MR cervical spine wo con 07/16/2024 XR chest 2V 08/21/2024 Next Appt Details Provider Name:Davin Castellanos, 11/09/2024 03:45:00 PM, [address] [facility] [address], [place], [address], Provider Name:Davin Castellanos, 04/05/2025 04:00:00 PM, [address] [place] [address] [address], [place], [address], Insurance Providers Payer Name Payer Address Payer Phone Subscriber Number Group Number Insured Name Patient Relationship to Insured Coverage Start Date Coverage End Date [facility] [address] [facility] [address] [facility] [place] [phone] [id number] [facility] Sekou Short Self - patient is the [...]
--- OUTSIDE RECORDS SUMMARY | 2024-10-01 13:52 | XMS_ITS ---
Author Organization Davin Castellanos III, MD Address [address] [place] [address] Care Team Providers Care Telecom Network Manager Name Role Phone Davin Castellanos Primary Care Provider REASON FOR VISIT Follow up Social History Sex Assigned At : Social History Observation Description Sex Assigned At Male Encounters Encounter Location Date Provider Diagnosis Davin Castellanos III, MD [address] [place] [address] [place] [address] 09/17/2024 Davin Castellanos Plan Of Treatment Next Appt Details Provider Name:Davin Castellanos, 11/09/2024 03:45:00 PM, [address] [place] [address] [place], [phone], Provider Name:Davin Castellanos, 04/05/2025 04:00:00 PM, [address] [place] [address] [place], [address], Progress Notes * Sekou DARDENDOB: [birth year] (59 yo M)Acc No.[id number]:09/17/2024 Progress Notes Patient:?Sekou DARDEN Provider:?Davin Castellanos MD :1965???Age:59 Y???Sex:Male Rohan e:09/17/2024 Address:[id number] Subjective: * Chief Complaints: * ???1. Follow up. * Medical History:? Objective: * Vitals:? Assessment: Plan: * Treatment: * Images: * The named appointment provid er may or may not be the originator of this progress note, and it is not deemed complete until electronically signed by the appointment provider. Sign off status: Pending * Provider:?Davin Castlelanos MD Date:?06/2024 Generated for Letty gaviria/Javon/eTransmitting on:?10/01/2024 01:51 PM EDT
--- OUTSIDE RECORDS SUMMARY | 2024-10-01 13:52 | XMS_ITS | Clinical Summary ---
Author Organization [address] Address [address] [place] [address] Phone Care Team Providers Care Consulting Networking Engineer Name Role Phone Davin Castellanos MD Primary Care Provider [phone] Allergies No known active allergies Medications ondansetron [...] Encounters Date Type Department Care Team Description 08/27/2024 6:36 PM EDT - 08/27/2024 11:59 PM EDT Hospital Encounter [facility] MRI [address] [place] [address] Other spondylosis with radiculopathy, lumbar region Discharge Disposition: Home or Self Care 08/04/2024 8:40 AM EDT Office Visit Gastroenterology - [address] [place] [phone] Wellington Mg MD Gastroesophageal reflux disease without [...] Tdap) 10/06/2023 10/05/2013, 03/03/2009, 07/22/1994 COVID-19 Vaccine ( - 2023-2 5 season) 2024 Cholesterol Screening (Lipid Panel) [...] age to complete this topic Meningococcal B Vaccine Aged Out No l onger eligible based on patient's age to complete [...] Procedure Name Priority Date/Time Associated Diagnosis Comments MR LUMBAR SPINE WO CONTRAST Routine 08/27/2024 7:45 PM EDT Other spondylosis with radiculopathy, lumbar region EXTERNAL COLONOSCOPY REPORT Routine 10/17/2022 9:56 AM EDT from Last 3 Months or Most Recently Relevant to Health Maintenance Results * MR Lumbar Spine wo Contrast (08/27/2024 7:45 PM EDT) Anatomical Region Laterality Modality L-spine, Spine Magnetic Resonan ce 08/28/2024 9:58 AM EDT Impressions 08/28/2024 10:07 AM EDT Degenerative changes of the lumbar spine as detailed above. -------- FINAL REPORT -------- Dictated By: Randell Vasquez Dictated Date: 08/28/2024 09:58 ET Assigned Physician: Randell Vasquez Reviewed and Electronically Signed By: Randell Vasquez Signed Date: 08/28/2024 10:07 ET Workstation ID: [id number] Transcribed By: Self Edit Transcribed Date: 08/28/2024 09:58 ET Narrative 08/28/2024 10:07 AM EDT PROCEDURE: MRI of the lumbar spine without contrast. TECHNIQUE: Multiplanar multisequence MRI of the lumbar spine without intravenous contrast administration. HISTORY: spondylosis, severe low back pain COMPARISON: 12/15/2014. FINDINGS: The paraspinous soft tissues are normal. Transitional anatomy at the lumbosacral junction with a partially lumbarized appearance of the S1 vertebral body. ??Mild Baastrup's changes. ??No compression deformity. ??No suspicious marrow infiltrative lesion. ??L4 vertebral body hemangioma. Normal position of the conus at L1. Lumbar disc levels: L1-2: Only imaged in the sagittal plane. ??No significant disc or facet abnormality. ??No spinal or foraminal stenosis. L2-3: Mild endplate irregularity. ??Small disc osteophyte complex eccentric to the right. ??Small superiorly projecting right foraminal extrusion which causes moderate right foraminal stenosis. ??No spinal stenosis. L3-4: Small anterior endplate osteophytes. ??Small broad-based central protrusion. ??Minimal degenerative irregularity of the facet joints. ??No spinal or foraminal stenosis. L4-5: Small anterior endplate osteophytes. ??Mild posterior predominant disc space height loss. ??Small disc osteophyte complex eccentric to the right. ??Small annular fissure in the right foraminal zone. ??Mild bilateral facet arthropathy. ??No spinal or foraminal stenosis. L5-S1: Mild posterior predominant disc space height loss and mild endplate irregularity. ??Small anterior endplate osteophytes. ??Small irregular symmetric disc bulge. ??Mild bilateral facet arthropathy. ??No spinal or foraminal stenosis. ??Mild left lateral recess stenosis. Procedure Note Randell Vasquez MD - 08/28/2024 PROCEDURE: MRI of the lumbar spine without contrast. TECHNIQUE: Multiplanar multisequence MRI of the lumbar spine withoutintravenous contrast administration. HISTORY: spondylosis, severe low back pain COMPARISON: 12/15/2014. FINDINGS: The paraspinous soft tissues are normal. Transitional anatomy at the lumbosacral junction with a partiallylumbarized appearance of the S1 vertebral body. Mild Baastrup's changes.No compression deformity. No suspicious marrow infiltrative lesion. U7ofeglxfsu body hemangioma. Normal position of the conus at L1. Lumbar disc levels: L1-2: Only imaged in the sagittal plane. No significant disc or facetabnormality. No spinal or foraminal stenosis. L2-3: Mild endplate irregularity. Small disc osteophyte complex eccentricto the right. Small superiorly projecting right foraminal extrusion whichcauses moderate right foraminal stenosis. No spinal stenosis. L3-4: Small anterior endplate osteophytes. Small broad-based centralprotrusion. Minimal degenerative irregularity of the facet joints. Nospinal or foraminal stenosis. L4-5: Small anterior endplate osteophytes. Mild posterior predominantdisc space height loss. Small disc osteophyte complex eccentric to theright. Small annular fissure in the right foraminal zone. Mild bilateralfacet arthropathy. No spinal or foraminal stenosis. L5-S1: Mild posterior predominant disc space height loss and mild endplateirregularity. Small anterior endplate osteophytes. Small irregularsymmetric disc bulge. Mild bilateral facet arthropathy. No spinal orforaminal stenosis. Mild left lateral recess stenosis. IMPRESSION: Degenerative changes of the lumbar spine as detailed above. -------- FINAL REPORT -------- Dictated By: Randell Vasquez Dictated Date: 08/28/2024 09:58 ET Assigned Physician: Randell Vasquez Reviewed and Electronically Signed By: Randell Vasquez Signed Date: 08/28/2024 10:07 ET Workstation ID: [id number] Transcribed By: Self Edit Transcribed Date: 08/28/2024 09:58 ET Davin Castellanos MD IMG MRI PROCEDURES Final Resul t * External Colonoscopy Report (10/17/2022 9:56 AM EDT) Anatomical Region Laterality Modality Endoscopy Historical Provider GI~PROCEDURE ORDERABLES F inal Result from Last 3 Months or Most Recently Relevant to Health Maintenance Insurance [employer] Care Teams Consulting Networking Engineer Relationship Specialty Start Date End Date Davin Castellanos MD [address] [place] [address] PCP - General Oncology 04/01/24
--- OUTSIDE RECORDS SUMMARY | 2024-10-01 13:52 | XMS_ITS ---
Author Organization Davin Castellanos III, MD Address [address] [place] [address] Care Team Providers Care Dba Name Role Phone Davin Castellanos Primary Care Provider REASON FOR VISIT HCC Risk Codes Social History Sex Assigned At : Social History Observation Description Sex Assigned At Male Encounters Encounter Location Date Provider Diagnosis Davin Castellanos III, MD [address] [place] [address] [place] [address] 09/29/2024 Davin Castellanos Plan Of Treatment Next Appt Details Provider Name:Davin Castellanos, 11/09/2024 03:45:00 PM, [address] [place] [address] [place], [address], Provider Name:Davin Castellanos, 04/05/2025 04:00:00 PM, [address] [place] [address] [place], [address], Progress Notes * Sekou DARDENDOB: [birth year] (59 yo M)Acc No.[id number]:09/29/2024 Patient:?Sekou DARDEN :1965???Age:59 Y???Sex:Male Address:[facility] [address] [place], [address] * * Date:?
[2024-10-01 14:14] VITALS: BMI 23.7
--- NOTE | 2024-10-01 14:14 | HO.SPINEOV ---
Vital Signs 10/01/24 14:14 Height 6 ft 2 in Weight 185 lb BMI 23.7 Intake Visit Reasons: LBP Intake Note: Mr. Short is here today c/o Neck and Low back pain. 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 Required: No Allergies skin cleanser combination no.23 [Sumadan] Allergy (Unknown, Verified 10/01/24 14:36) Didnt work sulfacetamide [Sumadan] Allergy (Unknown, Verified 10/01/24 14:36) Didnt work sulfur [Sumadan] Allergy (Unknown, Verified 10/01/24 14:36) Didnt work Physical Exam Vital Signs: BMI result Body Mass Index 23.7 Assessment & Plan Assessment & Plan (1) Back pain: Code(s): M54.9 - Dorsalgia, unspecified Category: Medical (2) Cervical disc disorder: Code(s): M50.90 - Cervical disc disorder, unspecified, unspecified cervical region Category: Medical Plan Dear Dr Castellanos, Thank you for referring Mr Short to our office today. 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 The low back situation probably started when he was lifting very heavy hot water heater and had to move it out of a basement I believe any had acute onset back pain. Ever since that time he has had intermittent back pain in his lumbar region. Generally he has it every day at this point. It is aggravated with back bending, standing walking for any length of time. He was taking high doses of Motrin for awhile but stopped that because of concern over his stomach and kidneys. He does intermittently get pain that radiates down into the front of his anterior thigh as well. That is a cramping sensation that he will often get at night. With regard to his neck, he has posterior cervical neck pain that also plaguing him when he is active and getting out of bed in the morning as well. He has had some physical therapy for both his low back in his cervical but nothing really helped all that much, in fact that only made him worse. No pain radiating down the arms consistent with a cervical radiculopathy or myelopathy. He comes in today to review his MRIs done at [facility] (formerly [facility] PMH: He is otherwise reasonably healthy, he has a problem with nausea suspected to be secondary to pancreatic issues, he takes Zofran for that but other than that he is healthy Social hx: He does not smoke cigarettes, but does use marijuana regularly, no alcohol abuse Medications: Zofran Allergies: Please see the [email or web address] list Physical exam: Awake alert oriented no acute distress, full strength of bilateral upper and lower extremities with normal reflexes, normal gait Imaging review: Cervical MRI done at [facility] shows degenerative disc disease in the midcervical regions with some reversal of the normal lordotic curvature of the cervical spine, no significant central canal stenosis seen. Lumbar MRI done at [facility] shows diffuse spondylosis with degenerative disc disease, all of this I would rate as moderate. He has a right far lateral disc bulge, osteophyte complex on the right at L1-2. Impression: 59-year-old male with a history of chronic low back and neck pain, has spondylosis in his cervical in his lumbar spine. I explained to him that many of the findings in his spinal imaging reflect appropriate wear and tear for his age and it is very hard to determine if these are exactly the source of where all of his back and neck pain are coming from. Fixing the surgically often involves removing the total disc and fusion of the affected segments. His disc just really are not at a stage right now where I think that would be warranted. There are no Modic endplate changes, no spondylolisthesis, no misalignments etc.. I do not think we would have a surgical solution for him that he would like in terms of overall outcome. At this point he is not really looking for surgery either, so we are in agreement that we can just continue to monitor the situation and if it gets significantly worse he can come back and see us down the road. We did briefly discuss the idea of injections but I do not see a role here for these, and neither did he want to pursue it. He was asking about if there are any other medications to take, and I told him to talk with you about Celebrex. Thank you for allowing us to care for your patient. The total time spent with this visit with this patient was 45 minutes reviewing history, physical exam, cervical and lumbar imaging review, and implementation of treatment plan or further diagnostic testing Tom Santiago MD,PhD [facility] Coding Level of Care Code New Pt Level 5 (25911) Diagnoses Back pain M54.9 Cervical disc disorder M50.90
== END 2024-10-01 15:06 | disposition home or self-care (01) ==
LOC: HO.HNS 13:49
PROVIDERS: PCP Internal Medicine Medical Oncology; Referring Provider Internal Medicine Medical Oncology; Visit Provider Physician Assistant
DX: M54.9 Dorsalgia, unspecified (principal); M50.90 Cervical disc disorder, unspecified, unspecified cervical region
CPT/HCPCS: 99204

== ENCOUNTER 2024-12-22 10:50 | Outpatient (REF) | payer OTHER, SELFPAY ==
[2024-12-22 11:15] LABS: MANUAL DIFF FLAG NO
[2024-12-22 11:32] LABS: Hematocrit 41.7 % (42.0-52.0); Hemoglobin 14.9 g/dl (14.0-18.0); Imm Gran Abs Auto 0.02 X10*3/uL (0.00-0.03); Imm Gran Pct Auto 0.3 % (0.0-0.4); Lymphocytes Absolute Auto 1.7 X10*3/uL (1.2-4.9); Mean Corpuscular HGB Conc 35.7 g/dl (31.0-36.0); Mean Corpuscular Hemoglobin 30.5 pg (27.0-33.0); Mean Corpuscular Volume 85.3 fL (80.0-98.0); NRBC Abs Auto 0.000 X10*3/uL (0.0-0.012); NRBC Pct Auto 0.0 /100WBC (0.0-0.2); Platelet Count 173 X10*3/uL (160-400); Red Blood Count 4.89 X10*6/uL (4.60-5.80); White Blood Count 7.0 X10*3/uL (4.8-10.8)
--- OUTSIDE RECORDS SUMMARY | 2024-12-22 11:32 | XMS_ITS | Patient Health Record ---
Author Organization Davin Castellanos III, MD Address [address] [place] [address] Care Team Providers Care Manager Care Management Name Role Phone Davin Castellanos Primary Care Provider [phone] Allergies Allergen (clinical drug ingredient) Drug/Non Drug Allergy documented on EMR Reaction Allergy Type Onset Date Status Sulfamethoxazole nausea Drug Allergy Active Results Component Value Reference Range Notes US soft tiss head and/or nec k Reviewed date:05/12/2024 08:44:51 AM Interpretation: Performing Lab: Notes/Report: [address] [address] Ultrasound Report Signed Patient: Sekou Short MR#: [id number] 0164 : 1965 Acct:[id number] Age/Sex: 58 / M ADM Date: 02/13/24 Loc: HO.US Attending Dr: Davin Castellanos MD Ordering Physician: Davin Castellanos MD Date of Service: 02/13/24 Procedure(s): US soft tiss head and/or neck Accession Number(s): [id number] cc: Davin Castellanos MD EXAMINATION: US SOFT [...] by: Steven Zheng MD 03/25/2024 04:09 PM [facility] Dictated By: Steven Zheng MD Signed By: <Electronically signed by Steven Zheng MD in OV> 03/25/24 1609 DD/ 1553 TD/TT: 02/13/24 1554 Multi Punch Operator: [place] [address] Ultrasound Report Signed Patient: Lacho Short MR#: [id number] 0164 : 1965 Acct:[id number] Age/Sex: 58 / M ADM Date: 02/13/24 Loc: HO.US Attending Dr: Davin Castellanos MD Ordering Physician: Davin Castellanos MD Date of Service: 02/13/24 Procedure(s): US sof t tiss head and/or neck Accession Number(s): [id number] cc: Davin Castellanos MD EXAMINATION: US SOFT [...] 03/25/24 1609 DD/ 1553 TD/TT: 02/13/24 1554 Multi Punch Operator: XR soft tissue neck Reviewed date:02/16/2024 08:16:05 AM Interpretation: Performing Lab: Notes/Report: [address] [address] XRay Report Signed Patient: Sekou Short MR#: [id number] 0164 : 1965 Acct:[id number] Age/Sex: 58 / M ADM Date: 01/30/24 Loc: NIC Attending Dr: Davin Castellanos MD Ordering Physician: Davin Castellanos MD Date of Service: 01/30/24 Procedure(s): XR soft tissue neck Accession Number(s): [id number] cc: Davin Castellanos MD EXAMINATION: XR SOFT [...] IMPRESSION: Degenerative change. Electronically signed by: Bill Millre MD 02/01/2024 05:53 PM EDT RP Dictated By: Bill Miller Signed By: <Electronically signed by Bill Miller in OV> 02/01/24 1753 DD/ 1604 TD/TT: 01/30/24 1604 Multi Punch Operator: [address] [address] XRay Report Signed Patient: Lacho Short MR#: [id number] 0164 : 1965 Acct:[id number] Age/Sex: 58 / M ADM Date: 01/30/24 Loc: NIC Attending Dr: Davin Castellanos MD Ordering Physician: Davin Castellanos MD Date of Service: 01/30/24 Procedure(s): XR sof t tissue neck Accession Number(s): [id number] cc: Davin Castellanos MD EXAMINATION: XR SOFT [...] 02/01/24 1753 DD/ 1604 TD/TT: 01/30/24 1604 Multi Punch Operator: FL barium swallow Reviewed date:11/19/2024 07:25:18 PM Interpretation: Performing Lab: Notes/Report: [address] [address] Fluoroscopy Report Signed Patient: Sekou Short MR#: [id number] 0164 : 1965 Acct:[id number] Age/Sex: 59 / M ADM Date: 07/14/24 Loc: HO.DYLANAY Attending Dr: Davin Castellanos MD Ordering Physician: Davin Castellanos MD Date of Service: 07/14/24 Procedure(s): FL barium swallow Accession Number(s): [id number] cc: Davin Castellanos MD EXAMINATION: XR FLUOROSCOPY [...] by: Steven Zheng MD 07/14/2024 04:16 PM [facility] Dictated By: Emery Ernandez Signed By: <Electronically signed by Emery Ernandez in OV> 07/14/24 1616 <Electronically signed by Steven Zheng MD in OV> 07/14/24 1618 DD/ 0840 TD/TT: 07/14/24 0912 Multi Punch Operator: [address] [address] Fluoroscopy Report Signed Patient: Lacho Short MR#: [id number] 0164 : 1965 Acct:[id number] Age/Sex: 59 / M ADM Date: 07/14/24 Loc: HO.XRAY Attending Dr: Davin Castellanos MD Ordering Physician: Davin Castellanos MD Date of Service: 07/14/24 Procedure(s): FL barium swallow Accession Number(s): [id number] cc: Davin Castellanos MD EXAMINATION: XR FLUOROSCOPY [...] by: Steven Zheng MD 07/14/2024 04:16 PM [facility] Dictated By: Emery Ernandez Signed By: <Electron ically signed by Emery Ernandez in OV> 07/14/24 1616 <Electronically sign ed by Steven Zheng MD in OV> 07/14/24 1618 DD/ TD/TT: 07/14/[address] Multi Punch Operator: MR cervical spine wo con Reviewed date:11/19/2024 07:25:17 PM Interpretation: Performing Lab: Notes/Report: [address] [address] Magnetic Resonance Report Signed Patient: Sekou Short MR#: [id number] 0164 : 1965 Acct:[id number] Age/Sex: 59 / M ADM Date: 07/16/24 Loc: HO.MRI Attending Dr: Davin Castellanos MD Ordering Physician: Davin Castellanos MD Date of Service: 07/16/24 Procedure(s): MR cervical spine wo con Accession Number(s): [id number] cc: Davin Castellanos MD CLINICAL HISTORY: Severe [...] Degenerative changes at C4-C5 and C5-C6 causing kzln-sn-uvroaocz bilateral neural foraminal stenosis. This document has been electronically signed by: Komal Ang MD on 07/16/2024 20:35:22 Dictated By: Komal Ang MD Signed By: <Electronically signed by Komal Ang MD in OV> 07/16/242035 DD/ 34 TD/TT: 07/16/242034 Multi Punch Operator: [address] [address] Magnetic Resonance Report Signed Patient: Lacho Short MR#: [id number] 0164 : 1965 Acct:[id number] Age/Sex: 59 / M ADM Date: 07/16/24 Loc: HO.MRI Attending Dr: Davin Castellanos MD Ordering Physician: Davin Castellanos MD Date of Service: 07/16/24 Procedure(s): MR paulo ramires spine wo con Accession Number(s): [id number] cc: Davin Castellanos MD CLINICAL HISTORY: Se [...] Degenerative changes at C4-C5 and C5-C6 causing apsc-yq-npneanez bilateral neural foraminal stenosis. This document has be en electronically signed by: Komal Ang MD on 07/16/2024 20:35:22 Dictated By: Komal Ang MD Signed By: <Electron ically signed by Komal Ang MD in OV> 07/16/242035 DD/ 34 TD/TT: 07/16/242034 Multi Punch Operator: XR chest 2V Reviewed date:11/19/2024 07:25:17 PM Interpretation: Performing Lab: Notes/Report: [address] [address] XRay Report Signed Patient: Sekou Short MR#: [id number] 0164 : 1965 Acct:[id number] Age/Sex: 59 / M ADM Date: 08/21/24 Loc: HO.XRAY Attending Dr: Davin Castellanos MD Ordering Physician: Davin Castellanos MD Date of Service: 08/21/24 Procedure(s): XR chest 2V Accession Number(s): [id number] cc: Davin Castellanos MD EXAMINATION: XR CHEST [...] OV> 08/23/24 1048 DD/ 0912 TD/TT: 08/21/249[address] Multi Punch Operator: [place] [address] XRay Report Signed Patient: Lacho Short MR#: [id number] 0164 : 1965 Acct:[id number] Age/Sex: 59 / M ADM Date: 08/21/24 Loc: HO.XRAY Attending Dr: Davin Castellanos MD Ordering Physician: Davin Castellanos MD Date of Service: 08/21/24 Procedure(s): XR chest 2V Accession Number(s): [id number] cc: Davin Castellanos MD EXAMINATION: XR CHEST [...] By: Davin Del Rio MD Signed By: <Electron eli signed by Davin Del Rio MD in OV> 08/23/24 1048 DD/ 0912 TD/TT: 08/21/24915 Multi Punch Operator: Reason For Referral Reason chronic cervical nec k pain with ROM evaluate and treat Diagnosis 1 Cervical pain (neck) (M54.2) Referral Organization Davin Castellanos III, MD Referring Provider First Name Davin Referring Provider Last Name Jasmin Referring Provider Speciality Internal edicine Referred Provider [facility] Referred Provider Specialty Physical Med icicaden General Notes Moriah Lan [facility] 04/06 02:47:17 PM >ref/demo/progress note faxed to [facility] the MRI request was denied by Edyta Tejada Suzanne [facility] 04/29/2024 03:46:09 PM >I called was [...] Specialty Gastroentero logy General Notes Moriah Lan [facility] 04/01 02:26:23 PM > I called Dr Mg office made pt appt for 05/02/2024 at 2:45pm arrival with 3pm appt pt called and mailed this information and ref/progress note faxed to Dr Mg at [phone] Referral Priority Routine Referral Appointment Date 05/05/2024 Reason Consult and Treat Diagnosis 1 Unspecified hearing loss (H91.90) Referral Organization Davin Castellanos III, MD Referring Provider First Name Davin Referring Provider Last Name Jasmin Referring Provider Speciality Internal edicine Referred Provider [facility] er, Audiology Referred Provider Specialty Otolaryngolo gy General Notes Jacinto Lomax ASMA 01:36:02 PM >Referral faxed to [facility] Speech and Hearing Referral Priority Routine Reason [...] MRI's faxed. 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. Coles office was made aware. Referral Priority Routine Referral Appointment Date 10/01/2024 Medications Medication SIG (Take, Route, Fr equency, Duration) Notes Start Date End Date Status Ibuprofen 800 MG 1 tablet with food o r milk as needed Orally every 8 hrs Active Celecoxib 200 MG 1 capsule as needed Orally Once a day 10/05/2024 Active Ondansetron HCl 4 MG 1 tablet Orally every 4 hours for nausea As needed Active Omeprazole 20 MG 1 [...] Problem Status W/U Status Risk Notes Problem 0521031 Former smoker (Z87.891) Active confirmed He is well motivated not to smoke. We formed a plan to prevent relapse and times of stress and illness. Problem 871511223 Overweight (E66.3) Active confirmed He is slightly overweight. We discussed diet and nutrition today. I advised him not to try to lose weight until his dysphagia has resolved. Problem Impacted cerumen (76453378) Impacted cerumen, unspecified ear (H61.20) Active confirmed The cerumen was easily removed.His hearing did not improve. Therefore, he was referred to audiology for testing. Problem 31607797 Cervical radiculopathy (M54.12) Active confirmed He has pain when he rotates his neck and he has failed to improve with physical therapy. Therefore an MRI will be ordered to look for a surgical solution. The pain is 7/10 and radiates into his shoulder and upper left arm. Diagnosis and therapeutics are in effect. Problem 53919320 Abdominal discomfort (R10.9) Active confirmed His amylase is normal, but his lipase is slightly elevated. An ultrasound of his abdomen will be ordered to assess stability of retract and pancreas. He is able to consume food and fluids. He has had no nausea or vomiting. He seems medically stable. Problem Duodenitis (19623584) Duodenitis (K29.80) Active confirmed This was found [...] and database will be reviewed. Problem Lump in neck (R22.1) Active confirmed He says he can still feel the lump in his right neck which is concern to him. He was given an appointment to return to the office for further evaluation. Problem 860752210 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) Active confirmed Problem 212583799 Benign prostatic hyperplasia, unspecified whether lower urinary tract symptoms present (N40.0) Active confirmed He rises fro m sleep 2 or 3 times a night to urinate. He rises 3 times some nights. We discussed lifestyle modification is aware reducing nocturia. Problem 540930193 Lumbar spondylosis (M47.816) Active confirmed His low back pain which has been well-controll ed has worsened. However, his neck is the main problem and he wants this addressed first. Diagnostic and therapeutic efforts will be directed toward the cervical spondylosis. Problem 51273105898841 History of pancreatitis (Z87.19) Active confirmed He has consumed a healthy, normal diet and has had no further episodes of abdominal pain. He has gained several pounds and his nutrition seems adequate. Problem 879305726662871 Lateral epicondylitis of right elbow (M77.11) Active confirmed The pain in the elbow has resolved. Problem 056768139 Old tear of meniscus of right knee, unspecified meniscus, unspecified tear type (M23.206) Active confirmed This has been repaired in the right knee is no longer painful. Problem 49976584 Unspecified hearing loss (H91.90) Active confirmed He complains of bilateral hearing loss of long-standing . He does not wish to have a further evaluation today. Vital Signs Heart Rate 70 /min 12/22/2024 Temperature 97.3 degrees Fahrenheit 12/22/2024 Blood pressure diastolic 90 mm Hg 12/22/2024 Height 72 in 12/22/2024 Blood pressure systolic 140 mm Hg 12/22/2024 Weight 193 lbs 12/22/2024 BMI 26.17 kg/m2 12/22/2024 Encounters Encounter Location Date Provider Diagnosis Davin Castellanos III, MD [address] [place] [address] [place] [address] 12/22/2024 Davin Castellanos Pain of left lower l eg M79.662 ; Other specified soft tissue disorders M79.89 and Other skin changes R23.8 Davin Castellanos III, MD [address] [place] [address] [place] [address] 01/30/2024 Davin Castellanos Neck pain on right [...] Other dysphagia R13.19 Davin Castellanos III, MD [address] [place] [address] [place] [address] 02/06/2024 Davin Castellanos Neck pain on right s alfredo M54.2 ; Mass in neck R22.1 ; Dysphagia R13.10 ; Overweight E66.3 and Former smoker Z87.891 Davin Castellanos III, MD [address] [place] [address] [place] [address] 03/31/2024 aDvin Castellanos Neck pain on right s alfredo M54.2 ; Abdominal discomfort R10.9 ; Former smoker Z87.891 ; Benign prostatic hyperplasia, unspecified whether lower urinary tract symptoms present N40.0 ; History of pancreatitis Z87.19 and Mass in neck R22.1 Davin Castellanos III, MD [address] [place] [address] [place] [address] 07/08/2024 Davin Castellanos Abdominal discomfort R10.9 ; Benign prostatic hyperplasia, unspecified whether lower urinary tract symptoms present N40.0 ; Lump in neck R22.1 ; Duodenitis K29.80 ; Lumbar spondylosis M47.816 ; Old tear of meniscus of right knee, unspecified meniscus, unspecified tear type M23.206 ; Former smoker Z87.891 ; Overweight E66.3 and Cervical radiculopathy M54.12 Davin Castellanos III, MD [address] [place] [address] [place] [address] 07/15/2024 Davin Castellanos Impacted cerumen, unspecified ear H61.20 ; Lumbar spondylosis M47.816 and Former smoker Z87.891 Davin Castellanos III, MD [address] [place] [address] [place] [address] 08/10/2024 Davin Castellanos Cervical radiculopat hy M54.12 ; Unspecified hearing loss H91.90 ; Abdominal discomfort R10.9 ; Lump in neck R22.1 ; Benign prostatic hyperplasia, unspecified whether lower urinary tract symptoms present N40.0 ; Former smoker Z87.891 and Overweight E66.3 Davin Castellanos III, MD [address] [place] [address] [place] [address] 08/17/2024 Davin Castellanos Lumbar spondylosis M47.816 ; Former smoker Z87.891 ; History of pancreatitis Z87.19 ; Overweight E66.3 ; Benign prostatic hyperplasia, unspecified whether lower urinary tract symptoms present N40.0 ; Cervical radiculopathy M54.12 and Unspecified hearing loss H91.90 Davin Castellanos III, MD [address] [place] [address] [place] [address] 09/14/2024 Davin Castellanos Overweight E66.3 ; Other [...] symptoms present N40.0 Davin Castellanos III, MD [address] [place] [address] [place] [address] 01/29/2024 Davin Castellanos III, MD [address] [place] [address] [place] [address] 02/06/2024 Davin Castellanos Mass in neck R22.1 Davin Castellanos III, MD [address] [place] [address] [place] [address] 04/01/2024 Davin Castellanos Cervical pain (neck) M54.2 Davin Castellanos III, MD [address] [place] [address] [place] [address] 04/01/2024 Davin Castellanos III, MD [address] [place] [address] [place] [address] 04/07/2024 Davin Castellanos III, MD [address] [place] [address] [place] [address] 04/26/2024 Davin Castellanos Neck pain on right s alfredo M54.2 Davin Castellanos III, MD [address] [place] [address] [place] [address] 08/24/2024 Davin Castellanos III, MD [address] [place] [address] [place] [address] 09/17/2024 Davin Castellanos III, MD [address] [place] [address] [place] [address] 09/23/2024 Davin Castellanos III, MD [address] [place] [address] [place] [address] 09/29/2024 Davin Castellanos III, MD [address] [place] [address] [place] [address] 10/05/2024 Davin Castellanos III, MD [address] [place] [address] [place] [address] 10/05/2024 Davin Castellanos Assessments Encounter Date Diagnosis (ICD Code) Assessment Notes Treatment Notes Treatment Clinical Notes 12/22/2024 Pain of left lower leg (ICD-10 - M79.662) 01/30/2024 Duodenitis (ICD-10 - K29.80) This was found in 2016 on upper endoscopy. He continues on acid suppression and uses ondansetron for nausea. He is under the care of a softlines supervisor. The abdominal discomfort and complaint has been [...] back pain which is well controlled with kyiv-gey-fpxocra medication. He is avoiding heavy lifting and [...] I have referred him back to the softlines supervisor for resolution of these issues. 04/01/2024 Cervical pain (neck) (ICD-10 - M54.2) [...] medicine for injections to relieve the pain. 12/22/2024 Other specified soft tissue disorders (ICD-10 - M79.89) 01/30/2024 Lumbar spondylosis (ICD-10 - M47.816) He has occasional back pain which is well controlled with blbl-bsy-qducfme medication. 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 The abdominal discomfort and complaint has been [...] back pain which is well controlled with mxmi-jvz-qjdrvhr medication. He is avoiding heavy lifting and [...] C) 08/03/2021 PROFILE, FASTING (COMPREHENSIVE METABOLI C) 07/08/2024 PROFILE, FASTING (COMPREHENSIVE METABOLI C) 08/13/2022 PROFILE, FASTING (COMPREHENSIVE METABOLI C) 11/12/2021 PROFILE, FASTING (COMPREHENSIVE METABOLI C) 08/22/2023 PROFILE, RANDOM (COMPREHENSIVE METABOLIC ) 06/04/2023 PROFILE, RANDOM (COMPREHENSIVE METABOLIC ) 06/21/2019 PROFILE, RANDOM (COMPREHENSIVE METABOLIC ) 12/22/2024 AMYLASE 08/03/2021 LIPASE 08/03/2021 LIPID PANEL 06/21/2019 LIPID PANEL 08/13/2022 LIPID PANEL 08/03/2021 LDH 06/04/2023 PSA, TOTAL 06/04/2023 PSA, TOTAL 07/08/2024 PSA, TOTAL 06/21/2019 PSA, TOTAL 11/12/2021 PSA, TOTAL 08/13/2022 PSA, TOTAL 08/03/2021 CBC w DIFF 12/22/2024 CBC w DIFF 06/21/2019 CBC w DIFF 11/12/2021 CBC w DIFF 08/13/2022 CBC w DIFF 08/03/2021 SED RATE (ESR) 08/03/2021 SED RATE (ESR) 06/04/2023 SED RATE (ESR) 12/22/2024 SED RATE (ESR) 06/21/2019 URINALYSIS (UA) 06/04/2023 MRI LUMBAR SPINE NO CONTRAST 08/17/2024 US LEG LT VENOUS DOPPLER 12/22/2024 CBC WITH AUTO DIFF 07/08/2024 CBC WITH AUTO DIFF 08/22/2023 CBC WITH AUTO DIFF 06/04/2023 Lipid Panel 08/22/2023 Lipid Panel 07/08/2024 Lipid Panel 11/12/2021 Amylase 07/08/2024 Amylase 06/04/2023 Lipase 11/12/2021 Lipase 07/08/2024 Lipase 06/04/2023 Urine Culture 06/04/2023 Next Appt Details Provider Name:Davin Castellanos, 12/24/2024 02:30:00 PM, [address] [place] [address] [address], [place], [address], Provider Name:Davin Castellanos, 04/05/2025 04:00:00 PM, [address] [place] [address] [address], [place], [address], Insurance Providers Payer Name Payer Address Payer Phone Subscriber Number Group Number Insured Name Patient Relationship to Insured Coverage Start Date Coverage End Date [facility] [address] [facility] [address] [facility] [place] [phone] [id number] [facility] Sekou Short Self - patient is the [...]
--- OUTSIDE RECORDS SUMMARY | 2024-12-22 11:32 | XMS_ITS | Clinical Summary ---
Author Organization [facility] [address] [facility] Address [address] [place] [address] Phone Care Team Providers Care Director Radio Name Role Phone Davin Castellanos MD Primary Care Provider [phone] Allergies No known active allergies Medications ondansetron [...] 08/04/2024 Weight loss, abnormal 08/04/2024 Nausea 08/04/2024 Social History Tobacco Use Types Packs/Day Years [...] Tdap) 10/06/2023 10/05/2013, 03/03/2009, 07/22/1994 COVID-19 Vaccine (1 - 2023-2 5 season) 2024 Cholesterol Screening (Lipid Panel) 04/01/2024 HIV Screening 04/01/2024 Hepatitis C Screening 04/01/2024 Medicare Annual Wellness Visit 04/01/2024 Social Influencers of Health Screening 04/01/2024 Depression Screening 05/19/2024 Influenza Vaccine (#1) 2025 Colorectal Cancer Screening: Colonoscopy 10/17/2032 10/17/2022 [...] [employer] [place] [employer]AGE Care Teams Director Radio Relationship Specialty Start Date End Date Davin Castellanos MD [address] [facility] [address] [place] [address] PCP - General Oncology 04/01/24
[2024-12-22 12:16] LABS: Alanine Aminotransferase 20 U/L (0-40); Albumin Level 4.4 g/dL (3.5-5.0); Alkaline Phosphatase 70 U/L (39-117); Anion Gap 11 (12-20); Aspartate Amino Transferase 23 U/L (5-37); Blood Urea Nitrogen 24 mg/dL (9-16); Calcium 9.2 mg/dL (8.4-10.2); Carbon Dioxide 29 mmol/L (22-29); Chloride 105 mmol/L (96-108); Estimated Glomerular Filt Rate > 60; Potassium 4.3 mmol/L (3.3-5.1); Sodium 141 mmol/L (135-145); Total Protein 6.7 g/dL (6.5-8.0)
== END 2024-12-22 10:51 | disposition home or self-care (01) ==
LOC: HO.10HDL 10:50
PROVIDERS: Visit Provider Internal Medicine Medical Oncology
DX: M79.662 Pain in left lower leg (principal); M79.89 Other specified soft tissue disorders; R23.8 Other skin changes
CPT/HCPCS: 36415; 80053; 85025; 85652

== ENCOUNTER 2024-12-22 12:58 | Outpatient (REF) | payer OTHER, SELFPAY ==
--- NOTE | ~2024-12-22 | US_ITS ---
EXAMINATION: US TRIPLEX LOWER EXTREMITY, LEFT CLINICAL INFORMATION: Pain left lower leg COMPARISON: None available. TECHNIQUE: Color-flow triplex imaging with spectral analysis and compression Doppler were performed on the left lower extremity. FINDINGS: Respiratory variation, normal compression and augmented flow are noted throughout the left lower extremity. The visualized common femoral vein, superficial femoral vein, profunda femoral vein, popliteal vein and midcalf peroneal and posterior tibial venous segments show no evidence of deep venous thrombosis. There is no Klein's cyst. US/US venous duplex LE LT IMPRESSION: No evidence of deep venous thrombosis involving the left lower extremity. Electronically signed by: Raphael Bean MD 12/22/2024 01:53 PM EDT
== END 2024-12-22 12:59 | disposition home or self-care (01) ==
LOC: HO.US 12:58
PROVIDERS: PCP Internal Medicine Medical Oncology; Visit Provider Internal Medicine Medical Oncology
DX: M79.662 Pain in left lower leg (principal); R60.0 Localized edema
CPT/HCPCS: 93971

== ENCOUNTER → 2024-12-22 13:10 | Outpatient (BNV) | payer OTHER, SELFPAY | PROVIDERS: PCP Internal Medicine Medical Oncology; Visit Provider Radiology Diagnostic Radiology | DX: M79.662 Pain in left lower leg (principal) | CPT/HCPCS: 93971 ==